=== PATIENT | male | born 1940 | race Caucasian/White ===

== ENCOUNTER 2019-08-18 01:25 | Outpatient (CLI) | payer OTHER, SELFPAY ==
--- NOTE | 2019-08-18 10:15 | DI.RAD_ITS ---
EXAM: XR KNEE LT 3V AP,LAT,PRISCILLA INDICATION: [facility] AUTH #[id number], PAIN LT KNEE, LEFT KNEE GIVES OUT. COMPARISON: No exams were available for comparison TECHNIQUE: 2D digital imaging was performed. FINDINGS: There is severe narrowing of the medial femoral tibial joint. There is periarticular spurring and sc lerosis. Spurring is also seen at the tibial spines and femoral intercondylar notch. The patellofem oral joint also shows periarticular spurring. There is a calcification seen of the posterior soft ti ssues which could be a loose body within a Austin's cyst. Vascular calcifications are present. IMPRESSION: Severe degenerative changes of the medial femoral tibial joint.
== END 2019-08-18 01:45 ==
PROVIDERS: Visit Provider Nurse Practitioner Primary Care
DX: M25.562 Pain in left knee (principal); M17.12 Unilateral primary osteoarthritis, left knee
CPT/HCPCS: 73562

== ENCOUNTER 2024-05-06 13:56 | Emergency (ER) | payer OTHER, SELFPAY ==
--- NOTE | 2024-05-06 14:00 | DI.RAD_ITS ---
Exam(s) XR HUMERUS RT EXAM: XR HUMERUS RT CLINICAL HISTORY: fall, obvious deformity. TECHNIQUE: 2D digital imaging was performed. COMPARISON: No exams were available for comparison FINDINGS: 3 views There is a comminuted displaced and angulated fracture in the proximal half of the humerus, also mild ly involving the humeral neck. There are no fracture line seen in the lower half of the humerus. No osseous lesions. No radiopaque foreign bodies. No adjacent rib fractures evident. IMPRESSION: Angulated displaced comminuted fracture proximal humerus DATA REPOSITORY: RADIATION DOSE DELIVERED:
--- NOTE | 2024-05-06 14:00 | DI.RAD_ITS ---
Exam(s) XR SHOULDER RT COMPLETE 2+V EXAM: XR SHOULDER RT COMPLETE 2+V CLINICAL HISTORY: Fall on outstretched arm, upper arm deformity. TECHNIQUE: 2D digital imaging was performed. COMPARISON: No exams were available for comparison FINDINGS: There is an acute comminuted and displaced fracture of the proximal diaphysis of the right humerus. This also involves the neck of the humerus and 1 of the fracture lines extends towards the greater tu berosity. There is no dislocation of the glenohumeral joint. Subacromial space appears preserved. Clavicle in tact. Coracoid process is intact. No adjacent rib fractures identified. IMPRESSION: Comminuted displaced and angulated fracture of the proximal humerus, also involving the humeral neck. DATA REPOSITORY: RADIATION DOSE DELIVERED:
[2024-05-06 14:01] VITALS: BP 164/89; PULSE 53; RESP 16; TEMP 37; O2SAT 99
--- NOTE | 2024-05-06 14:05 | ED.GENADUL_ITS ---
Discharge Plan Disposition Patient Disposition: Home Condition: Stable Discharge Details Clinical Impression: Fracture of proximal end of humerus, Acute hyperkalemia Primary Care Provider: [facility] Provider: Danna Duvall Home Meds and New Rx's Prescriptions: No Action insulin glargine [Lantus U-100 Insulin] 100 UNIT/ML solution 5 unit SQ HS aspirin [Aspir-Low] 81 MG tablet,delayed release (DR/EC) 81 mg PO DAILY bupropion HCl 100 MG tablet extended release 12 hr 100 mg PO BID simvastatin 40 MG tablet 40 mg PO QPM ascorbic acid (vitamin C) [Vitamin C] 500 MG tablet 500 mg PO DAILY lisinopril 5 MG tablet 5 mg PO DAILY metformin 500 MG tablet extended release 24 hr 500 mg PO BID acetaminophen-codeine [Tylenol-Codeine #3] 1 TAB tablet 1 tab PO Q4H Qty: 10 0RF Discharge Instructions Instructions: Upper Arm Fracture ED Additional Instructions: You were seen in the emergency department today for evaluation after a fall. In our department you had a full physical examination performed, had laboratory studies that were reassuring, and had x-ray imaging that showed a fracture in your upper arm. You are placed in a splint and a sling and should wear these until he can be seen by orthopedics in the next few days. You were noted to have a very slightly higher than normal potassium, for which you should follow- up with your primary care provider. Thank you for allowing us to be part of your care. Please continue to use Tylenol and ice for management of pain. Referrals: Gilson Khan MD [ [facility]] - 1 week Discharge Data Discharge Date/Time-TO BE ENTERED AT DEPARTURE: 05/06/24 17:12 HPI General Mode of arrival: EMS . Date/Time Provider Initiated Documentation: 05/06/24 14:03 . Limitations to Documentation: no limitations . Information obtained by: patient, family, EMS and old records reviewed . HPI Narrative: HPI: This is an 84-year-old male patient with a past medical history significant for hypertension, diabetes, and hyperlipidemia who is presenting for evaluation after a fall. The patient reports he was walking outside, tripped over the uneven ground and lost his balance, falling forward onto an outstretched arm against the wall of his garage/barn. He states that he then went down to his right knee. He reports that he did not hit his head, injure any other part of his body, and was able to ambulate after this event. This event was not preceded by any dizziness, chest pain, loss of consciousness/syncope. He states that he summoned EMS given the significant pain when he tried to move his arm. He states that while he does not have numbness, tingling or weakness of the distal hand, something about his hand just does not feel right. This is an isolated complaint and the patient has otherwise been in his normal state of health. He does not take blood thinning medications. Exam: Gen: Awake and alert, in no apparent distress HEENT: Non-icteric sclera, PERRL, scalp atraumatic Neck: Supple, no tenderness or step-offs appreciated with palpation of the C- spine Lungs: No apparent respiratory distress, normal respiratory effort. CV: Appears well perfused, strong distal pulses, chest wall stable and without tenderness, crepitus, or deformity Abdomen: Non-distended, soft, nontender MSK: Moves 4 extremities without apparent limitation in ROM, with the exception of the right upper extremity, which notes a deformity to the area of the p roximal humerus without overlying skin changes. The patient has no tenderness or deformity of the clavicles bilaterally, right elbow, forearm, wrist, and hand are without evidence of external trauma. T and L-spine are without tenderness or step-offs to palpation, pelvis stable to AP compression. The patient has a brace to the left knee from a historical injury. Skin: Visualized skin without rashes, cyanosis. Abrasion appreciated right knee Neuro: Normal Gait with arm supported, no obvious focal deficits or facial asymmetry. Speaks in full, clear sentences. CSM's distal to the right upper extremity injury are intact Psych: Appropriate for situation. MDM: This is an 84-year-old male patient presenting for evaluation of an isolated right shoulder injury. My differential includes but is not limited to fracture, dislocation, specifically of the shoulder, humerus. I considered ligamentous injury/sprain, muscular strain. No evidence of neurovascular derangements distal to the injury, this is reassuringly an isolated injury based on my physical examination. The patient denies head strike, loss of consciousness, and was without neurodeficit, making intracranial hemorrhage highly unlikely in this not anticoagulated patient. This was a mechanical fall with no concerning medical aspects to his history such as chest pain, syncope, dizziness preceding his fall that would require further workup and management. Will obtain baseline labs including CBC, CMP, PT/INR. Obtain an x-ray of the affected right shoulder and humerus. The patient received Tylenol from EMS prior to arrival for management of pain, and at this time is reporting 2 out of 10 pain as long as he does not move his arm. ED Course: I independently interpreted the laboratory studies, which show no significant leukocytosis, anemia, or thrombocytopenia. The chemistry panel is without evidence of electrolyte abnormality other than a mildly elevated potassium to 5.2, no kidney dysfunction, or liver injury. I independently interpreted the patient's imaging studies, which shows a comminuted humeral fracture, without associated shoulder capsule injury. The patient was placed in a coapt splint with a sling, orthopedics was made aware, he was neurovascularly intact before and after this procedure. The patient did have a brief episode of orthostasis upon sitting up, with sweatiness, transient hypotension, no injury or loss of consciousness sustained. He had an EKG that was nonischemic performed after this event, received 500 cc of fluids, and on repeat road test attempt the patient was asymptomatic and remained hemodynamically appropriate. At this time, the patient has had a full medical evaluation and is safe for discharge to home. They are hemodynamically stable, ambulatory, and tolerating PO. They are understanding of the follow-up plan and return precautions. They left our facility without incident. Danna Duvall MD Related Data Home Medications ?Medication ?Instructions ?Recorded ?Confirmed acetaminophen 300 mg-codeine 30 mg 1 tab PO Q4H #10 tabs 01/03/15 05/06/24 tablet (Tylenol-Codeine #3) ascorbic acid (vitamin C) 500 mg 500 mg PO DAILY 01/03/15 05/06/24 tablet (Vitamin C) aspirin 81 mg tablet,delayed 81 mg PO DAILY 01/03/15 05/06/24 release (Aspir-Low) bupropion HCl 100 mg tablet,12 hr 100 mg PO BID 01/03/15 05/06/24 sustained-release insulin glargine 100 unit/mL 5 unit SQ HS 01/03/15 05/06/24 subcutaneous solution (Lantus U-100 Insulin) lisinopril 5 mg tablet 5 mg PO DAILY 01/03/15 05/06/24 metformin 500 mg tablet,extended 500 mg PO BID 01/03/15 05/06/24 release 24 hr simvastatin 40 mg tablet 40 mg PO QPM 01/03/15 05/06/24 Previous Rx's ?Medication ?Instructions ?Recorded acetaminophen 300 mg-codeine 30 mg 1 tab PO Q4H #10 tabs 01/03/15 tablet (Tylenol-Codeine #3) Allergies Allergy/AdvReac Type Severity Reaction Status Date / Time No Known Allergies Allergy Verified 05/06/24 14:09 General Stated Complaint: Orthopedic MIA: 3 Course Vital Signs Vital signs: Vital Signs Temperature 37 C 05/06/24 14:01 Pulse 53 L 05/06/24 14:01 Respiratory Rate 16 05/06/24 14:01 Blood Pressure 164/89 H 05/06/24 14:01 Pulse Oximetry 99 05/06/24 14:01 Temperature 37 C 05/06/24 14:01 Temperature Source Temporal Artery Scan 05/06/24 14:01 Pulse 53 L 05/06/24 14:01 Respiratory Rate 16 05/06/24 14:01 Blood Pressure 164/89 H 05/06/24 14:01 Blood Pressure Position Sitting 05/06/24 14:01 Pulse Oximetry 99 05/06/24 14:01 Oxygen Delivery Method Room Air 05/06/24 14:01 Oxygen Flow Rate 0 05/06/24 14:01 Pain Level 3 05/06/24 14:01 Procedures Orthopedic Splinting/Casting Injury #1: Side: right Upper Extremity Injury Location: upper arm Upper Extremity Immobilizer: sling/shoulder immobilizer (With orthoglass coapt splint) Medical Decision Making Quality:SDOH Health Related Social Needs: No Data to Display PFSH All Active Problems (Updated 05/06/24 @ 16:52 by Danna Duvall MD) Acute hyperkalemia (Acute) Fracture of proximal end of humerus (Acute) Social History Smoking/Tobacco Use Status: Never Smoking risk assessment performed?: Yes Drug use: Never
[2024-05-06 14:32] LABS: Abs Immature Grans 0.12 10^3/uL (0.0-0.06); Absolute Basophil Count 0.08 10^3/uL (0.0-0.2); Absolute Eosinophil Count 0.13 10^3/uL (0.0-0.7); Absolute Lymphocyte Count 0.94 10^3/uL (1.2-3.4); Absolute Monocyte Count 0.43 10^3/uL (0.1-0.8); Basophils % 0.9 %; Eosinophils % 1.5 %; HCT 43.7 % (40.0-50.0); HGB 14.5 g/dL (13.5-17.5); Immature Grans % 1.4 %; Lymphocytes % 10.9 %; MCH 30.1 pg (27.0-33.0); MCHC 33.2 % (32.0-36.0); MCV 91 fL (80-95); MPV 8.9 fL (8.0-11.0); Neutrophils % 80.3 %; Platelet Count 232 10^3/uL (130-400); RBC 4.82 10^6/uL (4.36-5.78); RDW-SD 39.9 fL
[2024-05-06 14:47] LABS: Albumin 3.3 g/dL (3.4-5.0); BUN 15 mg/dL (7-18); Chloride 104 mmol/L (98-107); Glucose 244 mg/dL (74-106)
[2024-05-06 15:02] LABS: ALT 24 U/L (16-63); AST 25 U/L (15-37); Alkaline Phosphatase 57 U/L (46-116); Anion Gap 7.4 mmol/L (3-11); Bilirubin, Total 0.47 mg/dL (0.2-1.0); CO2 27.6 mmol/L (21.0-32.0); CREATININE 1.1 mg/dL (0.70-1.30); Calcium 8.6 mg/dL (8.5-10.1); Estimated GFR 67.02 (mL/min/1.73m2); Sodium 139 mmol/L (136-145); Total Protein 6.5 g/dL (6.4-8.2)
[2024-05-06 15:04] LABS: Potassium 5.2 mmol/L (3.5-5.1)
--- NOTE | 2024-05-06 15:45 | RT.EKG_ITS ---
APPROVED REPORT Exam: Resting ECG Reason for Exam: orthostasis Patient Location: E HR:59 bpm ECG Measurements Heart Rate 59 AXIS [place] 129 P 54 QRSd 100 QRS 45 QT 412 T 68 QTc 408 Conclusion Sinus bradycardia, rate 59 No interval abnormalities No STEMI
[2024-05-06 15:48] LABS: INR 1.1 (0.9-1.1); Prothrombin Time 10.9 sec (9.1-11.1)
[2024-05-06 15:49] VITALS: BP 96/53; PULSE 52; O2SAT 98
[2024-05-06 15:51] VITALS: PULSE 59; O2SAT 96
[2024-05-06 15:55] VITALS: BP 117/60; PULSE 55; O2SAT 97
[2024-05-06] MEDS: Lactated Ringers 500 ML IV (16:10)
[2024-05-06 17:12] VITALS: BP 100/45; PULSE 63; O2SAT 100
== END 2024-05-06 17:12 | disposition home or self-care (01) ==
PROVIDERS: Emergency Provider Emergency Medicine
DX: S49.001A Unspecified physeal fracture of upper end of humerus, right arm, initial encounter for closed fracture (principal); E87.5 Hyperkalemia; I10 Essential (primary) hypertension; E78.5 Hyperlipidemia, unspecified; E11.9 Type 2 diabetes mellitus without complications; Z79.82 Long term (current) use of aspirin; Z79.4 Long term (current) use of insulin; Z79.84 Long term (current) use of oral hypoglycemic drugs; W01.198A Fall on same level from slipping, tripping and stumbling with subsequent striking against other object, initial encounter; Y93.01 Activity, walking, marching and hiking; Y92.018 Other place in single-family (private) house as the place of occurrence of the external cause
CPT/HCPCS: 36415; 80053; 93005; 96360; 99285; 73030; 73060; 85025; 85610; 93010; 99284

== ENCOUNTER 2024-05-15 14:53 | Emergency (ER) | payer OTHER, SELFPAY ==
[2024-05-15 14:59] VITALS: BP 144/72; PULSE 72; RESP 15; TEMP 36.3; O2SAT 98
--- NOTE | 2024-05-15 15:21 | W.ED.GENAD ---
Discharge Plan Disposition Patient Disposition: Home Condition: Stable Discharge Details Clinical Impression: Fracture of proximal end of humerus Primary Care Provider: [facility] [facility] Provider: Danna Duvall Home Meds and New Rx's Prescriptions: No Action aspirin [Aspir-Low] 81 MG tablet,delayed release (DR/EC) 81 mg PO DAILY simvastatin 40 MG tablet 40 mg PO QPM ascorbic acid (vitamin C) [Vitamin C] 500 MG tablet 500 mg PO DAILY lisinopril 5 MG tablet 5 mg PO DAILY metformin 500 MG tablet extended release 24 hr 500 mg PO BID bupropion HCl 150 mg tablet sustained-release 12 hr 150 mg PO DAILY Discharge Instructions Instructions: Upper Arm Fracture ED Additional Instructions: You were seen in the emergency department today for evaluation after your arm fracture. In our department you had a full physical examination performed, and the reason why your arm is bruised and swollen is because it has been hanging down by your body not in a sling. This is a normal thing to happen after you break your arm but will take several weeks to go away entirely. We have provided with you with a new sling which you should wear at all of the time for support and elevation of your arm. Please use Tylenol as needed for pain. We have confirmed your phone number, and the [facility] will be reaching out to you early next week. Please answer the phone when they do. You also need to call the [place] on Friday to authorize a urgent orthopedics visit, and if you have difficulty navigating the system I recommend that you present to the [place] [facility] on Friday as they have an orthopedic doctor there as well. If you have any concerns, especially if you develop numbness, tingling, weakness of your hand, have severe worsening of your pain, or any other symptoms that cause you concern you can return to the emergency department for reevaluation. Thank you for allowing us to be part of your care. HPI General Mode of arrival: ambulatory. Date/Time Provider Initiated Documentation: 05/15/24 14:56. Limitations to Documentation: no limitations. Information obtained by: patient, family and old records reviewed. HPI Narrative: HPI: This is an 84-year-old male patient with a past medical history of diabetes, hypertension, and a recent history of right proximal humerus fracture, who is presenting for evaluation of arm swelling. The patient reports that after his fracture he has not yet gotten in contact with orthopedics to schedule follow-up, is hopeful to avoid surgery. He reports that he removed the coapt splint on his arm approximately 1 week ago, and has been intermittently using his sling. He arrives to the emergency department with the arm hanging at his side, without the sling in place. The patient states that he noted that his arm has gradually become more swollen and discolored. He reports that his fingers feel slightly cold, but he has not noted any tingling, numbness, or weakness. He states that he has been experiencing some dull pain in the area of the fracture, sharp pain when he moves it, and states that he has not been using any medications to manage his pain. Exam: Gen: Awake and alert, in no apparent distress HEENT: Non-icteric sclera Neck: Supple Lungs: No apparent respiratory distress, normal respiratory effort. CV: Appears well perfused, strong distal pulses Abdomen: Non-distended MSK: The patient has ongoing tenderness in the area of the right proximal humerus where his known fracture is. Distal to this injury he has notable ecchymosis with soft tissue swelling. He has full range of motion of the elbow, wrist, and fingers on the affected right side without pain out of proportion to exam. He has no sensory deficits, and has a full neurovascular examination distal to the proximal humerus fracture. The patient has strong distal pulses Skin: Visualized skin without rashes, cyanosis. Neuro: Normal Gait, no obvious focal deficits or facial asymmetry. Speaks in full, clear sentences. Psych: Appropriate for situation. MDM: This is an 84-year-old male patient presenting for evaluation of swelling and color change after recent fracture. My examination is most concerning for ecchymosis and dependent edema, likely in the setting of sling non-adherence and given the patient's injury. I certainly considered neurovascular derangement, compartment syndrome, DVT, arterial occlusion but these are not consistent with the patient's physical examination. ED Course: I rechecked orthopedics, and discussed the patient's case. The orthopedics clinic attempted to reach the patient by telephone and were unable to. I confirmed his phone number in the chart and made them aware that orthopedics would be trying to reach out to them to discuss follow-up. Additionally, I recommended that he call the [place] to obtain authorization to see orthopedics. I provided him with a new sling and counseling to wear the sling at all times for elevation and support of the arm, and counseled him on reasonable expectations for the course of healing of his ecchymosis and swelling. At this time, the patient has had a full medical evaluation and is safe for discharge to home. They are hemodynamically stable, ambulatory, and tolerating PO. They are understanding of the follow-up plan and return precautions. They left our facility without incident. Danna Duvall MD Related Data Home Medications ?Medication ?Instructions ?Recorded ?Confirmed ascorbic acid (vitamin C) 500 mg 500 mg PO DAILY 01/03/15 05/15/24 tablet (Vitamin C) aspirin 81 mg tablet,delayed 81 mg PO DAILY 01/03/15 05/15/24 release (Aspir-Low) lisinopril 5 mg tablet 5 mg PO DAILY 01/03/15 05/15/24 metformin 500 mg tablet,extended 500 mg PO BID 01/03/15 05/15/24 release 24 hr simvastatin 40 mg tablet 40 mg PO QPM 01/03/15 05/15/24 bupropion HCl 150 mg tablet,12 hr 150 mg PO DAILY 05/15/24 05/15/24 sustained-release Allergies Allergy/AdvReac Type Severity Reaction Status Date / Time No Known Allergies Allergy Verified 05/15/24 15:04 General Stated Complaint: Orthopedic MAI: 3 Course Vital Signs Vital signs: Vital Signs Temperature 36.3 C L 05/15/24 14:59 Pulse 72 05/15/24 14:59 Respiratory Rate 15 05/15/24 14:59 Blood Pressure 144/72 H 05/15/24 14:59 Pulse Oximetry 98 05/15/24 14:59 Temperature 36.3 C L 05/15/24 14:59 Pulse 72 05/15/24 14:59 Respiratory Rate 15 05/15/24 14:59 Respiratory Effort Normal 05/15/24 15:04 Blood Pressure 144/72 H 05/15/24 14:59 Blood Pressure Position Sitting 05/15/24 14:59 Pulse Oximetry 98 05/15/24 14:59 Oxygen Delivery Method Room Air 05/15/24 14:59 Oxygen Flow Rate 0 05/15/24 14:59 Medical Decision Making Quality:SDOH Health Related Social Needs: No Data to Display PFSH All Active Problems (Updated 05/15/24 @ 15:37 by Danna Duvall MD) Acute hyperkalemia (Acute) Fracture of proximal end of humerus (Acute) Social History Smoking/Tobacco Use Status: Never Smoking risk assessment performed?: Yes Drug use: Never
== END 2024-05-15 15:53 | disposition home or self-care (01) ==
PROVIDERS: Emergency Provider Emergency Medicine
DX: S42.201A Unspecified fracture of upper end of right humerus, initial encounter for closed fracture (principal); X58.XXXA Exposure to other specified factors, initial encounter
CPT/HCPCS: 99282; 99283

== ENCOUNTER 2024-11-08 17:47 | Observation (INO) | payer OTHER, SELFPAY ==
[2024-11-08] VITALS (47 sets, daily range): BP systolic 109–151; BP diastolic 54–105; PULSE 75–109; RESP 0–32; TEMP 37.2–37.3; O2SAT 95–99
--- NOTE | 2024-11-08 17:15 | RT.EKG_ITS ---
APPROVED REPORT Exam: Resting ECG Reason for Exam: weakness Patient Location: E HR:104 bpm ECG Measurements Heart Rate 104 AXIS [place] 162 P 69 QRSd 92 QRS 10 QT 332 T 58 QTc 437 Conclusion Sinus tachycardia 104 PVC no [facility]
--- NOTE | 2024-11-08 17:45 | DI.RAD_ITS ---
Exam(s) XR PORTABLE CHEST AP EXAM: XR PORTABLE CHEST AP CLINICAL HISTORY: cough. TECHNIQUE: 2D digital imaging was performed. COMPARISON: No exams were available for comparison FINDINGS: Single AP portable view. Heart size is upper normal. The mediastinum is not widened. The right lung is clear. There is platelike atelectasis or scarring in the lingular segment of the l eft lung. No pulmonary edema. No fractures. No pneumothorax. IMPRESSION: There is mild scarring or platelike atelectasis in the lingular segment of the left lung. DATA REPOSITORY: RADIATION DOSE DELIVERED:
--- NOTE | 2024-11-08 18:01 | W.ED.GENAD ---
Discharge Plan Disposition Patient Disposition: Admit to [facility] Condition: Stable Discharge Details Clinical Impression: Sepsis, Pneumonia Primary Care Provider: [facility] ED Provider: Carroll Diop Home Meds and New Rx's Prescriptions: No Action aspirin [Aspir-Low] 81 MG tablet,delayed release (DR/EC) 81 mg PO DAILY simvastatin 40 MG tablet 40 mg PO QPM ascorbic acid (vitamin C) [Vitamin C] 500 MG tablet 500 mg PO DAILY lisinopril 5 MG tablet 5 mg PO DAILY metformin 500 MG tablet extended release 24 hr 500 mg PO BID bupropion HCl 150 mg tablet sustained-release 12 hr 150 mg PO DAILY HPI General Date/Time Provider Initiated Documentation: 11/08/24 17:59. HPI Narrative: 84 year-old male presents to ED today by EMS with a chief complaint of fever at home, weakness, endorses cough with onset over the past few days- states he has not been able to get up on his own lately. Quality described as generalized malaise, states he may be off his Metformin, denies any overt pain, no radiation to chest pain, shortness of breath, nausea/vomiting, endorses normal BMs, denies abdominal pain. Severity is described as moderate for weakness. Palliating factors include nothing specific attempted. Provoking factors include nothing specific. Events leading up to the incident/Associated Symptoms: Per EMS patient had a temp of 103F. Patient not anticoagulated. Related Data Home Medications ?Medication ?Instructions ?Recorded ?Confirmed ascorbic acid (vitamin C) 500 mg 500 mg PO DAILY 01/03/15 05/15/24 tablet (Vitamin C) aspirin 81 mg tablet,delayed 81 mg PO DAILY 01/03/15 05/15/24 release (Aspir-Low) lisinopril 5 mg tablet 5 mg PO DAILY 01/03/15 05/15/24 metformin 500 mg tablet,extended 500 mg PO BID 01/03/15 05/15/24 release 24 hr simvastatin 40 mg tablet 40 mg PO QPM 01/03/15 05/15/24 bupropion HCl 150 mg tablet,12 hr 150 mg PO DAILY 05/15/24 05/15/24 sustained-release Allergies Allergy/AdvReac Type Severity Reaction Status Date / Time No Known Allergies Allergy Verified 11/08/24 20:51 General Stated Complaint: GenMedical MAI: 3 Review of Systems All systems reviewed & are unremarkable except as noted in HPI and below Exam Narrative Exam Narrative: GENERAL APPEARANCE: Obesity, toxic, awake and alert, atraumatic, mild acute distress. SKIN: Warm, pink, diaphoretic, intact, without rashes/lesions/ulcerations. HEAD: Normocephalic, atraumatic, normal hair distribution for gender/age. EYES: Normal conjunctiva, no exudates on lids/lashes. ENT: Nares patent, no circumoral cyanosis, no facial swelling NECK: Supple, trachea midline, painless cervical ROM. LUNGS/CHEST: Difficult auscultation due to body habitus, no wheezing, no rales, non-labored respirations, normal A/P diameter, symmetrical expansion, no chest wall deformity HEART (CV/PV): Regular rate- mildly tachycardic and rhythm without murmur, no peripheral edema, no JVD. ABDOMEN: Soft, non-distended, no guarding, mild epigastric tenderness without James's sign, no other peritoneal signs. MSK: Normal ROM, no swelling/deformity to bilateral UEs or LEs, moving all extremities without weakness, no cyanosis, spine midline without tenderness, normal curvature. NEURO: Mental Status AAOx4 - alert to person, place, time, events No facial droop, no forehead involvement. Motor: No focal weakness - strength 5/5 in bilateral UEs and LEs, proximal and distal, symmetric. Sensory: sensation intact to light touch globally. Gait NT. PSYCH: euthymic, cooperative, pleasant, appropriate speech Course Vital Signs Vital signs: Vital Signs Temperature 37.2 C 11/08/24 17:53 Pulse 105 H 11/08/24 17:53 Respiratory Rate 12 11/08/24 17:53 Blood Pressure 126/67 11/08/24 17:53 Pulse Oximetry 99 11/08/24 17:53 Temperature 37.2 C 11/08/24 17:53 Temperature Source Oral 11/08/24 17:53 Pulse 105 H 11/08/24 17:53 Respiratory Rate 12 11/08/24 17:53 Blood Pressure 126/67 11/08/24 17:53 Blood Pressure Position Supine 11/08/24 17:53 Pulse Oximetry 99 11/08/24 17:53 Oxygen Delivery Method Room Air 11/08/24 17:53 Oxygen Flow Rate 0 11/08/24 17:53 Lab/Test Results Lab/Test Results: 11/08/24 17:59 Blood Blood Culture - Pending 11/08/24 17:59 Blood Blood Culture - Pending Medical Decision Making This dictation utilizes [id number] dictation software and may contain unedited grammatical errors. 84 year-old male presents to ED today by EMS with a chief complaint of fever at home, weakness, endorses cough with onset over the past few days- states he has not been able to get up on his own lately. Quality described as generalized malaise, states he may be off his Metformin, denies any overt pain, no radiation to chest pain, shortness of breath, nausea/vomiting, endorses normal BMs, denies abdominal pain. Severity is described as moderate for weakness. Palliating factors include nothing specific attempted. Provoking factors include nothing specific. Events leading up to the incident/Associated Symptoms: Per EMS patient had a temp of 103F. Patients' medical history: T2DM, hyperlipidemia, denies cardiac history, denies COPD or tobacco use, denies stroke history. Family and social history: denies tobacco use, no ETOH use, states family is sick in the home with cough. Pertinent exam findings / vital signs include difficult auscultation to body habitus, no overt wheezing, no rales at bases, regular rate, mild epigastric tenderness without James's sign, no peritoneal signs. Differential / pathologies of concern include sepsis, pneumonia, UTI, poorly controlled diabetes. Diagnostic studies of: - CBC, CMP, lactate, lipase, magnesium, troponin, UA, respiratory panel PCR swab, blood cultures, chest x-ray. - CBC shows no leukocytosis, low lymphocytes, elevated absolute neutrophils - Initial lactate 3.5, repeat 2.5 - CMP shows mild BESSIE creatinine 1.4 - Magnesium normal - Serial troponins negative - Lipase negative - UA shows some proteinuria, no UTI - Blood cultures pending - Chest x-ray shows some platelike atelectasis or scarring in the lingular segment of left lung possible secondary to pneumonia Interventions of: - IV ceftriaxone, IV azithromycin, IV fluids. ED Course/Assessment/Plan: 84-year-old male presents by EMS for report of fever of 103F at home, tachycardia per EMS, sick contacts in the home-question some platelike atelectasis secondary to mild pneumonia with lactic acidosis initially 3.5, repeat 2.5, giving empiric antibiotics for pneumonia, patient has been off his metformin for 2 weeks I do not think that metformin is the source of a lactic acidosis, stable troponins, discussed with hospitalist Dr. Subramanian who accepted for obs admission. Findings not consistent with hypoxemic respiratory failure, ACS, septic shock, acute surgical abdominal pathology. Disposition of Sepsis, Pneumonia. Patient verbalized understanding of the plan and return to ED criteria and engaged in shared decision making. Medical Records Medical records reviewed: Yes I reviewed the patient's medical records. Imaging Data Radiologic Study: Attestation: I personally reviewed and interpreted this imaging study as follows: Imaging: X-Ray Radiologist's impression: EXAM: XR PORTABLE CHEST AP CLINICAL HISTORY: cough. TECHNIQUE: 2D digital imaging was performed. COMPARISON: No exams were available for comparison FINDINGS: Single AP portable view. Heart size is upper normal. The mediastinum is not widened. The right lung is clear. There is platelike atelectasis or scarring in the lingular segment of the left lung. No pulmonary edema. No fractures. No pneumothorax. IMPRESSION: There is mild scarring or platelike atelectasis in the lingular segment of the left lung. Lab Data Lab results reviewed: Yes I reviewed the patient's lab results. Labs: 11/08/24 21:40 Blood Blood Culture - Pending 11/08/24 19:50 Blood Blood Culture - Pending Laboratory Tests Range/Units 11/08/24 11/08/24 11/08/24 18:08 19:50 21:40 WBC (4.4-10.8) 10^3/uL 9.02 RBC (4.36-5.78) 10^6/uL 5.36 Hgb (13.5-17.5) g/dL 15.5 Hct (40.0-50.0) % 46.8 MCV (80-95) fL 87 MCH (27.0-33.0) pg 28.9 MCHC (32.0-36.0) % 33.1 RDW (11.8-14.1) % 12.6 Plt Count (130-400) 10^3/uL 200 MPV (8.0-11.0) fL 9.2 Immature Gran % % 1.1 Neutrophils % % 86.6 Lymphocytes % % 4.7 Monocytes % % 6.7 Eosinophils % % 0.3 Basophils % % 0.6 Nucleated RBC % (0.0-0.3) % 0.0 Absolute Neutrophils (1.2-6.7) 10^3/uL 7.82 H Absolute Lymphocytes (1.2-3.4) 10^3/uL 0.42 L Absolute Monocytes (0.1-0.8) 10^3/uL 0.60 Absolute Eosinophils (0.0-0.7) 10^3/uL 0.03 Absolute Basophils (0.0-0.2) 10^3/uL 0.05 VBG Lactate (<or=2.0) mmol/L 3.5 H* Sodium (136-145) mmol/L 134 L Potassium (3.5-5.1) mmol/L 4.3 Chloride (98-107) mmol/L 100 Carbon Dioxide (21.0-32.0) mmol/L 27.2 Anion Gap (3-11) mmol/L 6.8 BUN (7-18) mg/dL 16 Creatinine (0.70-1.30) mg/dL 1.4 H Est GFR (CKD-EPI 2020) (mL/min/1.73m2) 50.18 Glucose (74-106) mg/dL 216 H Calcium (8.5-10.1) mg/dL 9.1 Magnesium (1.8-2.4) mg/dL 1.8 Total Bilirubin (0.2-1.0) mg/dL 0.7 AST (15-37) U/L 18 ALT (16-63) U/L 18 Alkaline Phosphatase (46-116) U/L 70 Troponin I (<or=76) ng/L 22 22 Total Protein (6.4-8.2) g/dL 7.6 Albumin (3.4-5.0) g/dL 3.5 Lipase (<78) U/L 58 Urine Color (Yellow) Yellow Urine Clarity (Clear) Clear Urine pH (5-8) 5.5 Ur Specific [place] (1.005-1.025) 1.020 Urine Protein (Neg-Trace) mg/dL 100 H Urine Ketones (Negative) mg/dL Negative Urine Blood (Negative) Trace-lysed H Urine Nitrite (Negative) Negative Urine Bilirubin (Negative) Negative Urine Urobilinogen (Up to 0.2) mg/dL 0.2 Ur Leukocyte Esterase (Negative) Negative Urine RBC (0-2) HPF 3-5 H Urine WBC (0-5) HPF Negative Ur Epithelial Cells (Negative) HPF Negative Urine Crystals (Negative) HPF Rare Amorphous Urine Bacteria (Negative) HPF Rare Urine Casts (Negative) LPF 0-2 Hyaline Urine Mucus (Negative) Trace Urine Other (Negative) Rare [place] Ur Culture Indicated? No Urine Glucose (Negative) mg/dL 500 H COVID-19 Source Nasopharynx SARS-CoV-2 (PCR) (Negative) Negative Influenza Type A (PCR) (Negative) Negative Influenza Type B (PCR) (Negative) Negative RSV (PCR) (Negative) Negative Range/Units 11/08/24 22:02 WBC (4.4-10.8) 10^3/uL RBC (4.36-5.78) 10^6/uL Hgb (13.5-17.5) g/dL Hct (40.0-50.0) % MCV (80-95) fL MCH (27.0-33.0) pg MCHC (32.0-36.0) % RDW (11.8-14.1) % Plt Count (130-400) 10^3/uL MPV (8.0-11.0) fL Immature Gran % % Neutrophils % % Lymphocytes % % Monocytes % % Eosinophils % % Basophils % % Nucleated RBC % (0.0-0.3) % Absolute Neutrophils (1.2-6.7) 10^3/uL Absolute Lymphocytes (1.2-3.4) 10^3/uL Absolute Monocytes (0.1-0.8) 10^3/uL Absolute Eosinophils (0.0-0.7) 10^3/uL Absolute Basophils (0.0-0.2) 10^3/uL VBG Lactate (<or=2.0) mmol/L 2.5 H* Sodium (136-145) mmol/L Potassium (3.5-5.1) mmol/L Chloride (98-107) mmol/L Carbon Dioxide (21.0-32.0) mmol/L Anion Gap (3-11) mmol/L BUN (7-18) mg/dL Creatinine (0.70-1.30) mg/dL Est GFR (CKD-EPI 2020) (mL/min/1.73m2) Glucose (74-106) mg/dL Calcium (8.5-10.1) mg/dL Magnesium (1.8-2.4) mg/dL Total Bilirubin (0.2-1.0) mg/dL AST (15-37) U/L ALT (16-63) U/L Alkaline Phosphatase (46-116) U/L Troponin I (<or=76) ng/L Total Protein (6.4-8.2) g/dL Albumin (3.4-5.0) g/dL Lipase (<78) U/L Urine Color (Yellow) Urine Clarity (Clear) Urine pH (5-8) Ur Specific [place] (1.005-1.025) Urine Protein (Neg-Trace) mg/dL Urine Ketones (Negative) mg/dL Urine Blood (Negative) Urine Nitrite (Negative) Urine Bilirubin (Negative) Urine Urobilinogen (Up to 0.2) mg/dL Ur Leukocyte Esterase (Negative) Urine RBC (0-2) HPF Urine WBC (0-5) HPF Ur Epithelial Cells (Negative) HPF Urine Crystals (Negative) HPF Urine Bacteria (Negative) HPF Urine Casts (Negative) LPF Urine Mucus (Negative) Urine Other (Negative) Ur Culture Indicated? Urine Glucose (Negative) mg/dL COVID-19 Source SARS-CoV-2 (PCR) (Negative) Influenza Type A (PCR) (Negative) Influenza Type B (PCR) (Negative) RSV (PCR) (Negative) Quality:SDOH Health Related Social Needs: No Data to Display PFSH All Active Problems (Updated 11/08/24 @ 22:43 by Karel Subramanian MD) Acute delirium (Acute) Hypertension (Chronic) Diabetes (Chronic) Pneumonia (Acute) Sepsis (Acute) Social History Smoking/Tobacco Use Status: Never Smoking risk assessment performed?: Yes Alcohol Intake: never Drug use: Never Substance use type: does not use
[2024-11-08 18:48] LABS: Bilirubin Negative (Negative); Blood Trace-lysed (Negative); Clarity Clear (Clear); Glucose 500 mg/dL (Negative); Ketones Negative (Negative); Leukocyte Esterase Negative (Negative); Nitrite Negative (Negative); Urobilinogen 0.2 mg/dL (Up to 0.2); pH 5.5 (5-8)
[2024-11-08 19:04] LABS: Bacteria Rare HPF (Negative); Crystals Rare Amorphous HPF (Negative); Epithelial Cells Negative HPF (Negative); WBC Negative HPF (0-5)
[2024-11-08 19:05] LABS: C & S Indicated? No; Casts 0-2 Hyaline LPF (Negative); Mucus Trace (Negative)
[2024-11-08 20:04] LABS: Absolute Basophil Count 0.05 10^3/uL (0.0-0.2); Absolute Eosinophil Count 0.03 10^3/uL (0.0-0.7); Absolute Lymphocyte Count 0.42 10^3/uL (1.2-3.4); Absolute Neutrophil Count 7.82 10^3/uL (1.2-6.7); Basophils % 0.6 %; Eosinophils % 0.3 %; HCT 46.8 % (40.0-50.0); HGB 15.5 g/dL (13.5-17.5); Immature Grans % 1.1 %; Lymphocytes % 4.7 %; MCH 28.9 pg (27.0-33.0); MCHC 33.1 % (32.0-36.0); MCV 87 fL (80-95); MPV 9.2 fL (8.0-11.0); Monocytes % 6.7 %; Neutrophils % 86.6 %; Platelet Count 200 10^3/uL (130-400); RBC 5.36 10^6/uL (4.36-5.78); RDW 12.6 % (11.8-14.1); RDW-SD 40.7 fL; WBC 9.02 10^3/uL (4.4-10.8)
[2024-11-08 20:05] LABS: Lactate 3.5 mmol/L (<or=2.0)
[2024-11-08 20:31] LABS: ALT 18 U/L (16-63); AST 18 U/L (15-37); Albumin 3.5 g/dL (3.4-5.0); Alkaline Phosphatase 70 U/L (46-116); Anion Gap 6.8 mmol/L (3-11); BUN 16 mg/dL (7-18); Bilirubin, Total 0.7 mg/dL (0.2-1.0); CO2 27.2 mmol/L (21.0-32.0); CREATININE 1.4 mg/dL (0.70-1.30); Calcium 9.1 mg/dL (8.5-10.1); Chloride 100 mmol/L (98-107); Estimated GFR 50.18 (mL/min/1.73m2); Glucose 216 mg/dL (74-106); Magnesium 1.8 mg/dL (1.8-2.4); Potassium 4.3 mmol/L (3.5-5.1); Sodium 134 mmol/L (136-145); Total Protein 7.6 g/dL (6.4-8.2); Troponin I 22 ng/L (<or=76)
[2024-11-08] MEDS: cefTRIAXone 2 GM/50 ML BAG IVPB (20:37)
[2024-11-08] MEDS: AZITHROMYCIN 500 MG in Normal Saline 250 ML 250 MG IVPB (20:37)
[2024-11-08 20:39] LABS: COVID-19 PCR Negative (Negative); Influenza A PCR Negative (Negative); Influenza B PCR Negative (Negative); RSV PCR Negative (Negative); Source Nasopharynx
[2024-11-08 20:41] LABS: Lipase 58 U/L (<78)
[2024-11-08] MEDS: Normal Saline 1,000 ML 1000 ML IV (20:55)
[2024-11-08 22:07] LABS: Troponin I 22 ng/L (<or=76)
[2024-11-08 22:09] LABS: Lactate 2.5 mmol/L (<or=2.0)
--- NOTE | 2024-11-08 22:32 | HPE_ITS ---
Date of service: 11/08/24 Time of Service: 22:32 Assessment and Plan Assessment and plan (1) Sepsis: Status: Acute Assessment and plan: Patient was started on antibiotics in the ED but I do not see a clear indication for this. Patient technically does not have sepsis. Recheck fever curve and white count in the morning and then make a decision on antibiotics (2) Pneumonia: Status: Acute Assessment and plan: As above (3) Diabetes: Status: Chronic Assessment and plan: Per notes from the ED the patient knows longer is on metformin. His glucose did show a value of 216 but this is not fasting obviously. Will add sliding scale and monitor monitor. (4) Hypertension: Status: Chronic Assessment and plan: Restart home meds once med list is available (5) Acute delirium: Status: Acute Assessment and plan: My concern at this time is an underlying dementia versus delirium. Will give chemical restraints as needed. Right now the patient is not agitated but does seem confused. History of Present Illness Narrative: This is an 84-year-old gentleman who presented to the ED with concerns about hyperpyrexia. Per report the patient had a fever of 103 at home came into the ED for further evaluation and treatment. On my examination the patient states that he is not able to walk. The patient was also completely nude and does not remember taken off his clothes. The patient is alert he is oriented to person only. His workup was fairly benign with the exception of a possible pneumonia as well as in proving and lactic acidosis. The reason for admission at this point is more for safety and concerns about undiagnosed dementia. Workup in the ED showed a normal white count and a fairly benign lab work. Urinalysis did show some proteinuria and hematuria. Chest x-ray shows some atelectasis but possible pneumonia in the left lung. EKG shows PVCs but is otherwise within normal limits. HPI General Date/Time Provider Initiated Documentation: 11/08/24 17:59. HPI Narrative: 84 year-old male presents to ED today by EMS with a chief complaint of fever at home, weakness, endorses cough with onset over the past few days- states he has not been able to get up on his own lately. Quality described as generalized malaise, states he may be off his Metformin, denies any overt pain, no radiation to chest pain, shortness of breath, nausea/vomiting, endorses normal BMs, denies abdominal pain. Severity is described as moderate for weakness. Palliating factors include nothing specific attempted. Provoking factors include nothing specific. Events leading up to the incident/Associated Symptoms: Per EMS patient had a temp of 103F. Medical Decision Making This dictation utilizes [id number] dictation software and may contain unedited grammatical errors. 84 year-old male presents to ED today by EMS with a chief complaint of fever at home, weakness, endorses cough with onset over the past few days- states he has not been able to get up on his own lately. Quality described as generalized malaise, states he may be off his Metformin, denies any overt pain, no radiation to chest pain, shortness of breath, nausea/vomiting, endorses normal BMs, denies abdominal pain. Severity is described as moderate for weakness. Palliating factors include nothing specific attempted. Provoking factors include nothing specific. Events leading up to the incident/Associated Symptoms: Per EMS patient had a temp of 103F. Patients' medical history: T2DM, hyperlipidemia, denies cardiac history, denies COPD or tobacco use, denies stroke history. Family and social history: denies tobacco use, no ETOH use, states family is sick in the home with cough. Pertinent exam findings / vital signs include difficult auscultation to body habitus, no overt wheezing, no rales at bases, regular rate, mild epigastric tenderness without James's sign, no peritoneal signs. Differential / pathologies of concern include sepsis, pneumonia, UTI, poorly controlled diabetes. Diagnostic studies of: - CBC, CMP, lactate, lipase, magnesium, troponin, UA, respiratory panel PCR swab, blood cultures, chest x-ray. - CBC shows no leukocytosis, low lymphocytes, elevated absolute neutrophils - Initial lactate 3.5, repeat 2.5 - CMP shows mild BESSIE creatinine 1.4 - Magnesium normal - Serial troponins negative - Lipase negative - UA shows some proteinuria, no UTI - Blood cultures pending - Chest x-ray shows some platelike atelectasis or scarring in the lingular segment of left lung possible secondary to pneumonia Interventions of: - IV ceftriaxone, IV azithromycin, IV fluids. ED Course/Assessment/Plan: 84-year-old male presents by EMS for report of fever of 103F at home, tachycardia per EMS, sick contacts in the home-question some platelike atelectasis secondary to mild pneumonia with lactic acidosis initially 3.5, repeat 2.5, giving empiric antibiotics for pneumonia, patient has been off his metformin for 2 weeks I do not think that metformin is the source of a lactic acidosis, stable troponins, discussed with hospitalist Dr. Subramanian who accepted for obs admission. Findings not consistent with hypoxemic respiratory failure, ACS, septic shock, acute surgical abdominal pathology. Disposition of Sepsis, Pneumonia. Patient verbalized understanding of the plan and return to ED criteria and engaged in shared decision making. Review of Systems Unobtainable due to mental status [facility] All Active Problems (Updated 11/08/24 @ 22:43 by Karel Subramanian MD) Acute delirium (Acute) Hypertension (Chronic) Diabetes (Chronic) Pneumonia (Acute) Sepsis (Acute) Social History Smoking/Tobacco Use Status: Never Smoking risk assessment performed?: Yes Alcohol Intake: never Drug use: Never Substance use type: does not use Meds Allergies and Home Medications Allergies Allergy/AdvReac Type Severity Reaction Status Date / Time No Known Allergies Allergy Verified 11/08/24 20:51 Home Medications ?Medication ?Instructions ?Recorded ?Confirmed ?Type ascorbic acid (vitamin C) 500 mg 500 mg PO DAILY 01/03/15 05/15/24 History tablet (Vitamin C) aspirin 81 mg tablet,delayed 81 mg PO DAILY 01/03/15 05/15/24 History release (Aspir-Low) lisinopril 5 mg tablet 5 mg PO DAILY 01/03/15 05/15/24 History metformin 500 mg tablet,extended 500 mg PO BID 01/03/15 05/15/24 History release 24 hr simvastatin 40 mg tablet 40 mg PO QPM 01/03/15 05/15/24 History bupropion HCl 150 mg tablet,12 hr 150 mg PO DAILY 05/15/24 05/15/24 History sustained-release Exam Narrative Exam Narrative: HEENT: Normocephalic atraumatic mucous membranes moist oropharynx clear Neck: No lymphadenopathy no JVD no thyromegaly Cardiovascular: Regular rate and rhythm no rubs or gallops Lungs: Clear to auscultation bilaterally with good air exchange Abdomen: Soft nontender nondistended bowel sounds active Extremities: no sinus clubbing or edema Neurologic: Cranial nerves II through XII intact as tested reflexes upper extremity normal as tested Psych: he is alert but oriented only person. Results Labs 11/08/24 19:50 11/08/24 19:50 Labs: Laboratory Results - last 24 hr 11/08/24 11/08/24 11/08/24 18:08 19:50 21:40 WBC 9.02 RBC 5.36 Hgb 15.5 Hct 46.8 MCV 87 MCH 28.9 MCHC 33.1 RDW 12.6 Plt Count 200 MPV 9.2 Immature Gran % 1.1 Neutrophils % 86.6 Lymphocytes % 4.7 Monocytes % 6.7 Eosinophils % 0.3 Basophils % 0.6 Nucleated RBC % 0.0 Absolute Neutrophils 7.82 H Absolute Lymphocytes 0.42 L Absolute Monocytes 0.60 Absolute Eosinophils 0.03 Absolute Basophils 0.05 VBG Lactate 3.5 H* Sodium 134 L Potassium 4.3 Chloride 100 Carbon Dioxide 27.2 Anion Gap 6.8 BUN 16 Creatinine 1.4 H Est GFR (CKD-EPI 2020) 50.18 Glucose 216 H Calcium 9.1 Magnesium 1.8 Total Bilirubin 0.7 AST 18 ALT 18 Alkaline Phosphatase 70 Troponin I 22 22 Total Protein 7.6 Albumin 3.5 Lipase 58 Urine Color Yellow Urine Clarity Clear Urine pH 5.5 Ur Specific [place] 1.020 Urine Protein 100 H Urine Ketones Negative Urine Blood Trace-lysed H Urine Nitrite Negative Urine Bilirubin Negative Urine Urobilinogen 0.2 Ur Leukocyte Esterase Negative Urine RBC 3-5 H Urine WBC Negative Ur Epithelial Cells Negative Urine Crystals Rare Amorphous Urine Bacteria Rare Urine Casts 0-2 Hyaline Urine Mucus Trace Urine Other Rare [place] Ur Culture Indicated? No Urine Glucose 500 H COVID-19 Source Nasopharynx SARS-CoV-2 (PCR) Negative Influenza Type A (PCR) Negative Influenza Type B (PCR) Negative RSV (PCR) Negative 11/08/24 22:02 WBC RBC Hgb Hct MCV MCH MCHC RDW Plt Count MPV Immature Gran % Neutrophils % Lymphocytes % Monocytes % Eosinophils % Basophils % Nucleated RBC % Absolute Neutrophils Absolute Lymphocytes Absolute Monocytes Absolute Eosinophils Absolute Basophils VBG Lactate 2.5 H* Sodium Potassium Chloride Carbon Dioxide Anion Gap BUN Creatinine Est GFR (CKD-EPI 2020) Glucose Calcium Magnesium Total Bilirubin AST ALT Alkaline Phosphatase Troponin I Total Protein Albumin Lipase Urine Color Urine Clarity Urine pH Ur Specific [place] Urine Protein Urine Ketones Urine Blood Urine Nitrite Urine Bilirubin Urine Urobilinogen Ur Leukocyte Esterase Urine RBC Urine WBC Ur Epithelial Cells Urine Crystals Urine Bacteria Urine Casts Urine Mucus Urine Other Ur Culture Indicated? Urine Glucose COVID-19 Source SARS-CoV-2 (PCR) Influenza Type A (PCR) Influenza Type B (PCR) RSV (PCR) Last Vital Signs Temp 37.2 C 11/08/24 17:53 Pulse 93 H 11/08/24 21:11 Resp 29 H 11/08/24 21:11 BP 141/105 H 11/08/24 21:01 Pulse Ox 98 11/08/24 21:11 Time Spent Time spent with Patient: <40 minutes Time was spent: preparing to see the patient(eg.review tests), obtaining and/or reviewing separately otained hiistory, ordering medications,tests, procedures, referring, communicating with other health care director rn, indepentently interpreting results, counseling the patient and care coordination
[2024-11-08] MEDS: Enoxaparin 40 MG/0.4 ML SYR SC (23:55)
[2024-11-09] VITALS (9 sets, daily range): BP systolic 87–133; BP diastolic 53–78; PULSE 67–90; RESP 18–19; TEMP 36.6–38.8; O2SAT 96–99
--- NOTE | 2024-11-09 00:27 | W.PC.ACHO ---
Registration Status: Primary Language: Preferred Language: ED Information & Data Chief Complaint GenMedical 11/08/24 18:02 Triage Note Patient family called with 11/08/24 17:53 report of patient having generalized weakness. Patient having history of feeling unwell for a week. Not voiding since morning. EMS reported fever of 103. Patient reported coughing. He is diabetic and family reported that they are not sure when he had his medication. Most Recent Vital Signs Temperature 37.3 C 11/08/24 23:57 Temperature Source Tympanic 11/08/24 23:57 Pulse 75 11/08/24 23:57 Respiratory Rate 29 H 11/08/24 21:11 Respiratory Effort Normal, Non-Labored 11/08/24 18:01 Respiratory Depth Normal 11/08/24 18:01 Respiratory Pattern Normal 11/08/24 18:01 Blood Pressure 151/84 H 11/08/24 23:57 Blood Pressure Position Supine 11/08/24 17:53 Pulse Oximetry 97 11/08/24 23:57 Oxygen Delivery Method Room Air 11/08/24 23:57 Oxygen Flow Rate 0 11/08/24 23:57 Allergies No Known Allergies Allergy (Verified 11/08/24 20:51) Active Medications Generic Name Dose Route Start Last Admin Trade Name Freq PRN Reason Stop Dose Admin Enoxaparin Sodium 40 mg 11/08/24 23:00 11/08/24 23:55 Enoxaparin 40 Mg/0.4 Ml Syr SC 40 mg Q24H CARYN Administration IV IV Catheter Type [Left Upper Saline Lock arm] IV Catheter Gauge [Left Upper 18 arm] Diet Orders Category Date Time Status Regular/Normal [DIET] Nutrition 11/09/24 Breakfast Active Diagnostics 11/09/24 11/08/24 11/08/24 Range/Units 05:35 22:02 21:40 WBC Pending (4.4-10.8) 10^3/uL RBC Pending (4.36-5.78) 10^6/uL Hgb Pending (13.5-17.5) g/dL Hct Pending (40.0-50.0) % MCV Pending (80-95) fL MCH Pending (27.0-33.0) pg MCHC Pending (32.0-36.0) % RDW Pending (11.8-14.1) % Plt Count Pending (130-400) 10^3/uL MPV Pending (8.0-11.0) fL Immature Gran % Pending % Neutrophils % Pending % Lymphocytes % Pending % Monocytes % Pending % Eosinophils % Pending % Basophils % Pending % Nucleated RBC % (0.0-0.3) % Absolute Neutrophils Pending (1.2-6.7) 10^3/uL Absolute Lymphocytes Pending (1.2-3.4) 10^3/uL Absolute Monocytes Pending (0.1-0.8) 10^3/uL Absolute Eosinophils Pending (0.0-0.7) 10^3/uL Absolute Basophils Pending (0.0-0.2) 10^3/uL VBG Lactate 2.5 H* (<or=2.0) mmol/L Sodium Pending (136-145) mmol/L Potassium Pending (3.5-5.1) mmol/L Chloride Pending (98-107) mmol/L Carbon Dioxide Pending (21.0-32.0) mmol/L Anion Gap Pending (3-11) mmol/L BUN Pending (7-18) mg/dL Creatinine Pending (0.70-1.30) mg/dL Est GFR (CKD-EPI 2020) Pending (mL/min/1.73m2) Glucose Pending (74-106) mg/dL Calcium Pending (8.5-10.1) mg/dL Magnesium (1.8-2.4) mg/dL Total Bilirubin Pending (0.2-1.0) mg/dL AST Pending (15-37) U/L ALT Pending (16-63) U/L Alkaline Phosphatase Pending (46-116) U/L Troponin I 22 (<or=76) ng/L Total Protein Pending (6.4-8.2) g/dL Albumin Pending (3.4-5.0) g/dL Lipase (<78) U/L Urine Color (Yellow) Urine Clarity (Clear) Urine pH (5-8) Ur Specific [place] (1.005-1.025) Urine Protein (Neg-Trace) mg/dL Urine Ketones (Negative) mg/dL Urine Blood (Negative) Urine Nitrite (Negative) Urine Bilirubin (Negative) Urine Urobilinogen (Up to 0.2) mg/dL Ur Leukocyte Esterase (Negative) Urine RBC (0-2) HPF Urine WBC (0-5) HPF Ur Epithelial Cells (Negative) HPF Urine Crystals (Negative) HPF Urine Bacteria (Negative) HPF Urine Casts (Negative) LPF Urine Mucus (Negative) Urine Other (Negative) Ur Culture Indicated? Urine Glucose (Negative) mg/dL COVID-19 Source SARS-CoV-2 (PCR) (Negative) Influenza Type A (PCR) (Negative) Influenza Type B (PCR) (Negative) RSV (PCR) (Negative) 11/08/24 11/08/24 Range/Units 19:50 18:08 WBC 9.02 (4.4-10.8) 10^3/uL RBC 5.36 (4.36-5.78) 10^6/uL Hgb 15.5 (13.5-17.5) g/dL Hct 46.8 (40.0-50.0) % MCV 87 (80-95) fL MCH 28.9 (27.0-33.0) pg MCHC 33.1 (32.0-36.0) % RDW 12.6 (11.8-14.1) % Plt Count 200 (130-400) 10^3/uL MPV 9.2 (8.0-11.0) fL Immature Gran % 1.1 % Neutrophils % 86.6 % Lymphocytes % 4.7 % Monocytes % 6.7 % Eosinophils % 0.3 % Basophils % 0.6 % Nucleated RBC % 0.0 (0.0-0.3) % Absolute Neutrophils 7.82 H (1.2-6.7) 10^3/uL Absolute Lymphocytes 0.42 L (1.2-3.4) 10^3/uL Absolute Monocytes 0.60 (0.1-0.8) 10^3/uL Absolute Eosinophils 0.03 (0.0-0.7) 10^3/uL Absolute Basophils 0.05 (0.0-0.2) 10^3/uL VBG Lactate 3.5 H* (<or=2.0) mmol/L Sodium 134 L (136-145) mmol/L Potassium 4.3 (3.5-5.1) mmol/L Chloride 100 (98-107) mmol/L Carbon Dioxide 27.2 (21.0-32.0) mmol/L Anion Gap 6.8 (3-11) mmol/L BUN 16 (7-18) mg/dL Creatinine 1.4 H (0.70-1.30) mg/dL Est GFR (CKD-EPI 2020) 50.18 (mL/min/1.73m2) Glucose 216 H (74-106) mg/dL Calcium 9.1 (8.5-10.1) mg/dL Magnesium 1.8 (1.8-2.4) mg/dL Total Bilirubin 0.7 (0.2-1.0) mg/dL AST 18 (15-37) U/L ALT 18 (16-63) U/L Alkaline Phosphatase 70 (46-116) U/L Troponin I 22 (<or=76) ng/L Total Protein 7.6 (6.4-8.2) g/dL Albumin 3.5 (3.4-5.0) g/dL Lipase 58 (<78) U/L Urine Color Yellow (Yellow) Urine Clarity Clear (Clear) Urine pH 5.5 (5-8) Ur Specific [place] 1.020 (1.005-1.025) Urine Protein 100 H (Neg-Trace) mg/dL Urine Ketones Negative (Negative) mg/dL Urine Blood Trace-lysed H (Negative) Urine Nitrite Negative (Negative) Urine Bilirubin Negative (Negative) Urine Urobilinogen 0.2 (Up to 0.2) mg/dL Ur Leukocyte Esterase Negative (Negative) Urine RBC 3-5 H (0-2) HPF Urine WBC Negative (0-5) HPF Ur Epithelial Cells Negative (Negative) HPF Urine Crystals Rare Amorphous (Negative) HPF Urine Bacteria Rare (Negative) HPF Urine Casts 0-2 Hyaline (Negative) LPF Urine Mucus Trace (Negative) Urine Other Rare [place] (Negative) Ur Culture Indicated? No Urine Glucose 500 H (Negative) mg/dL COVID-19 Source Nasopharynx SARS-CoV-2 (PCR) Negative (Negative) Influenza Type A (PCR) Negative (Negative) Influenza Type B (PCR) Negative (Negative) RSV (PCR) Negative (Negative) 11/08/24 21:40 Blood Culture - Pending Blood 11/08/24 19:50 Blood Culture - Pending Blood Intake and Output - 24 Hour Total 11/08/24 17:23 thru 11/08/24 23:17 Intake Total 1300 Balance 1300 Weight 114.6 kg Intake: IV 1300 Falls Risk Assessment History of Falls No History 11/08/24 21:51 Contributing Factors No Factors 11/08/24 21:51 Ambulatory Aids Independent 11/08/24 21:51 Tubes/Lines None 11/08/24 21:51 Gait Evaluation No gait disturbance 11/08/24 21:51 Cognition No cognitive impairment 11/08/24 21:51 Fall Total Score 0 11/08/24 21:51 Level of Risk Standard/Low Risk 11/08/24 21:51 Problems Acute delirium (Acute) Hypertension (Chronic) Diabetes (Chronic) Pneumonia (Acute) Sepsis (Acute) v v v v v v v v v Sending and/or Receiving Nurses: Please use comment section below to note any information pertinent to the patient hand-off not included above. Information / Comments: No further questions. Report received from: VANCE Bynum
[2024-11-09] MEDS: Acetaminophen 325 MG TAB PO (00:58)
[2024-11-09] MEDS: Normal Saline 1,000 ML 100 ML IV (00:59)
[2024-11-09 06:58] LABS: Abs Immature Grans 0.06 10^3/uL (0.0-0.06); Absolute Basophil Count 0.04 10^3/uL (0.0-0.2); Absolute Eosinophil Count 0.05 10^3/uL (0.0-0.7); Absolute Lymphocyte Count 0.77 10^3/uL (1.2-3.4); Absolute Monocyte Count 0.71 10^3/uL (0.1-0.8); Absolute Neutrophil Count 3.56 10^3/uL (1.2-6.7); Basophils % 0.8 %; HCT 40.8 % (40.0-50.0); HGB 13.6 g/dL (13.5-17.5); Immature Grans % 1.2 %; Lymphocytes % 14.8 %; MCH 28.9 pg (27.0-33.0); MCHC 33.3 % (32.0-36.0); MCV 87 fL (80-95); MPV 8.9 fL (8.0-11.0); Monocytes % 13.7 %; Neutrophils % 68.5 %; Platelet Count 159 10^3/uL (130-400); RDW 12.5 % (11.8-14.1); RDW-SD 40.1 fL; WBC 5.19 10^3/uL (4.4-10.8)
[2024-11-09 07:25] LABS: ALT 13 U/L (16-63); AST 15 U/L (15-37); Albumin 2.7 g/dL (3.4-5.0); Alkaline Phosphatase 48 U/L (46-116); Anion Gap 5.5 mmol/L (3-11); BUN 12 mg/dL (7-18); Bilirubin, Total 0.5 mg/dL (0.2-1.0); CO2 26.5 mmol/L (21.0-32.0); CREATININE 1.2 mg/dL (0.70-1.30); Calcium 8.4 mg/dL (8.5-10.1); Chloride 105 mmol/L (98-107); Estimated GFR 60.38 (mL/min/1.73m2); Glucose 146 mg/dL (74-106); Potassium 3.7 mmol/L (3.5-5.1); Sodium 137 mmol/L (136-145); Total Protein 6.1 g/dL (6.4-8.2)
[2024-11-09] MEDS: buPROPion-CR 150 MG TABCR PO (07:55)
[2024-11-09] MEDS: Aspirin E.C. 81 MG TABEC PO (07:55)
[2024-11-09] MEDS: Ascorbic Acid 500 MG TAB PO (07:55)
[2024-11-09] MEDS: Lisinopril 5 MG TAB PO (07:55)
--- NOTE | 2024-11-09 09:17 | NUR.NOTE ---
Nursing Note:Accessed chart to figure out disposition from visit yesterday. Found that he was admitted. Family called to find out which floor he was on.
--- NOTE | 2024-11-09 09:23 | NUR.NOTE ---
Daughter Almaz called asking for an update. She is not on pts hippa but when asked he advised this is his daughter. New Hippa form will be completed with pt to reflect this change. Will call back Almaz with update once hippa form has been updated
--- NOTE | 2024-11-09 09:57 | PDOC.CMIN ---
Date of service: 11/09/24 Time of Service: 09:58 Care Management Initial Assmt Initial Assessment Reason for Hospitalization: Acute Delirum Functional Status/Living Situation Patient Presentation: Karel was sitting in a recliner when CM met with him. He is polite and easy to engage in conversation. He lives in a mobile home with his and daughter in [place]. He drives and is independent at baseline. Karel served in the [employer] and is retired from the [employer]. Karel gets MOW (delivered occasionally) and is familiar with the [facility]. He is eager to discharge home and feels he will be well supported by his daughter and . New [facility] PT is recommended on discharge, pt agrees. Town of Residence: [place] Resides with: Child (Daughter Annie) and Spouse ( Leann) Significant Other/Family: Local Natural Supports: Lives with and daughter Employment Status: Retired Instrumental Activities of Daily Living (ADLs): Independent Medications Medication Management: No Issues/Barriers identified Physical Functioning/Mobility Assistive Device: Walker/Cane Advance Directives Advance Directives: Do you have an Advance Directive: N 04/22/16 09:42 AD On File at [facility]: N 01/03/15 14:31 Date Asked 11/08/24 11/08/24 18:01 AD Date Reviewed COLST On File at [facility] COLST Date Scanned Code Status Resuscitation Status Full Code Portal Pt does not currently have a portal and education provided: Yes Insurance Coverage/Financial Issues Insurance: BC/BS Federal Medicare Part [place] B [place] Care Team Visit Care Team Role Provider Type [facility] Primary Care Provider REPORT RECIPIENT Irma Child Other Providers CREATIVE SERVICES DESIGNER Ailin Gomez Other Providers CREATIVE SERVICES DESIGNER Soo Edwards Other Providers CREATIVE SERVICES DESIGNER Karrie Mcdonald RN Other Providers CREATIVE SERVICES DESIGNER Kiley Subramanian Other Providers CREATIVE SERVICES DESIGNER ALEXANDREA Ortiz Emergency Provider [facility] RELATIONS DIRECTOR Karel Subramanian MD Admit Provider [facility] STAFF PHYSICIAN Attending Provider Discharge Potential Discharge Needs: PCP F/U Appt Anticipated Barriers to Discharge: None Identified Patient/Family Education Needs: Review discharge instructions, discuss Ask Me Three Transportation: Private vehicle Plan: Karel will discharge home with New [facility] PT when medically ready for discharge. Family will provide transportation. He will follow up with his PCP and discharge plan of care as directed. CM will follow. Social Determinants of Health Screening Social Determinants of health last assessed in clinic: 11/09/24 Will the Patient Participate in the Screening?: Yes Do you worry about having a steady place to live?: no Problems where you live: no known problems In the past 12 months, have you had to go without electric, gas, oil or water in your home?: no 1. Within the past 12 months, we worried whether our food would run out before we got money to buy more.: Never true 2. Within the past 12 months, the food we bought just didn't last and we didn't have money to get more.: Never true Has lack of transportation kept you from medical appointments or from doing things needed for daily living?: no Has anyone in your life made you feel unsafe or unsupported?: no How hard is it for you to pay for the very basics like food, housing, medical care, and heating? Would you say it is:: Not hard at all Do you want help finding or keeping work or a job?: I do not need or want help If for any reason you need help with day-to-day activities such as bathing, preparing meals, shopping, managing finances, etc., do you get the help you need?: I don?t need any help How often do you feel lonely or isolated from those around you?: Never Do you speak a language other than Lithuanian at home?: No Does the patient want assistance with any of the above?: No PFSH All Active Problems (Updated 11/09/24 @ 00:40 by ROBBIE MATHIS) Acute delirium (Acute) Hypertension (Chronic) Diabetes (Chronic) Pneumonia (Acute) Sepsis (Acute) Social History Smoking/Tobacco Use Status: Never Smoking risk assessment performed?: Yes Alcohol Intake: never Drug use: Never Substance use type: does not use Housing: other
--- NOTE | 2024-11-09 10:22 | TELEP.MEDR_ITS ---
Date of service: 11/09/24 Time of Service: 10:23 Telepharmacy Home Med Rec Allergies Allergies: No Known Allergies Allergy (Verified 11/08/24 20:51) Interview Person Interviewed: Patient, [facility] med list from [facility] Quality Quality of Interview/Accuracy of Medication List: Good Sources Sources used to compile medication list: [employer] Medication List and Patient List Changes made to Home Medication List: ADDITIONS: None DELETIONS: Bupropion Glipizide Lisinopril Simvastatin CHANGES: Metformin to 1000mg HS Additional Notes Additional Notes: Pt states Metformin is his only medication taken at home. Recommended Changes Recommended Changes(reason for recommendation): None Attestation: The home medication list is now updated to the best of my knowledge and is ready to be reconciled by the provider. Please contact the [facility] Pharmacist at for any questions.
--- NOTE | 2024-11-09 11:05 | W.PM.HP.N ---
Date of service: 11/09/24 [facility] All Active Problems (Updated 11/09/24 @ 00:40 by ROBBIE MATHIS) Acute delirium (Acute) Hypertension (Chronic) Diabetes (Chronic) Pneumonia (Acute) Sepsis (Acute) Social History Smoking/Tobacco Use Status: Never Smoking risk assessment performed?: Yes Alcohol Intake: never Drug use: Never Substance use type: does not use Housing: other Meds Allergies and Home Medications Allergies Allergy/AdvReac Type Severity Reaction Status Date / Time No Known Allergies Allergy Verified 11/08/24 20:51 Home Medications ?Medication ?Instructions ?Recorded ?Confirmed ?Type metformin 500 mg tablet,extended 1,000 mg PO HS 01/03/15 11/09/24 History release 24 hr Results Labs 11/09/24 06:25 11/09/24 06:25 Labs: Laboratory Results - last 24 hr 11/08/24 11/08/24 11/08/24 18:08 19:50 21:40 WBC 9.02 RBC 5.36 Hgb 15.5 Hct 46.8 MCV 87 MCH 28.9 MCHC 33.1 RDW 12.6 Plt Count 200 MPV 9.2 Immature Gran % 1.1 Neutrophils % 86.6 Lymphocytes % 4.7 Monocytes % 6.7 Eosinophils % 0.3 Basophils % 0.6 Nucleated RBC % 0.0 Absolute Neutrophils 7.82 H Absolute Lymphocytes 0.42 L Absolute Monocytes 0.60 Absolute Eosinophils 0.03 Absolute Basophils 0.05 VBG Lactate 3.5 H* Sodium 134 L Potassium 4.3 Chloride 100 Carbon Dioxide 27.2 Anion Gap 6.8 BUN 16 Creatinine 1.4 H Est GFR (CKD-EPI 2020) 50.18 Glucose 216 H Calcium 9.1 Magnesium 1.8 Total Bilirubin 0.7 AST 18 ALT 18 Alkaline Phosphatase 70 Troponin I 22 22 Total Protein 7.6 Albumin 3.5 Lipase 58 Urine Color Yellow Urine Clarity Clear Urine pH 5.5 Ur Specific [place] 1.020 Urine Protein 100 H Urine Ketones Negative Urine Blood Trace-lysed H Urine Nitrite Negative Urine Bilirubin Negative Urine Urobilinogen 0.2 Ur Leukocyte Esterase Negative Urine RBC 3-5 H Urine WBC Negative Ur Epithelial Cells Negative Urine Crystals Rare Amorphous Urine Bacteria Rare Urine Casts 0-2 Hyaline Urine Mucus Trace Urine Other Rare [place] Ur Culture Indicated? No Urine Glucose 500 H COVID-19 Source Nasopharynx SARS-CoV-2 (PCR) Negative Influenza Type A (PCR) Negative Influenza Type B (PCR) Negative RSV (PCR) Negative 11/08/24 11/09/24 22:02 06:25 WBC 5.19 RBC 4.70 Hgb 13.6 Hct 40.8 MCV 87 MCH 28.9 MCHC 33.3 RDW 12.5 Plt Count 159 MPV 8.9 Immature Gran % 1.2 Neutrophils % 68.5 Lymphocytes % 14.8 Monocytes % 13.7 Eosinophils % 1.0 Basophils % 0.8 Nucleated RBC % 0.0 Absolute Neutrophils 3.56 Absolute Lymphocytes 0.77 L Absolute Monocytes 0.71 Absolute Eosinophils 0.05 Absolute Basophils 0.04 VBG Lactate 2.5 H* Sodium 137 Potassium 3.7 Chloride 105 Carbon Dioxide 26.5 Anion Gap 5.5 BUN 12 Creatinine 1.2 Est GFR (CKD-EPI 2020) 60.38 Glucose 146 H Calcium 8.4 L Magnesium Total Bilirubin 0.5 AST 15 ALT 13 L Alkaline Phosphatase 48 Troponin I Total Protein 6.1 L Albumin 2.7 L Lipase Urine Color Urine Clarity Urine pH Ur Specific [place] Urine Protein Urine Ketones Urine Blood Urine Nitrite Urine Bilirubin Urine Urobilinogen Ur Leukocyte Esterase Urine RBC Urine WBC Ur Epithelial Cells Urine Crystals Urine Bacteria Urine Casts Urine Mucus Urine Other Ur Culture Indicated? Urine Glucose COVID-19 Source SARS-CoV-2 (PCR) Influenza Type A (PCR) Influenza Type B (PCR) RSV (PCR) Last Vital Signs Temp 37.1 C 11/09/24 07:48 Pulse 68 11/09/24 07:48 Resp 19 11/09/24 07:48 BP 121/61 11/09/24 07:48 Pulse Ox 98 11/09/24 07:48
[2024-11-09] MEDS: Azithromycin 250 MG TAB PO (12:03)
--- NOTE | 2024-11-09 14:42 | IN_ITS ---
PT Notes Visit Reasons: mental status change Inpatient Physical Therapy Evaluation Date: 11/09/2024 Referring Doctor: Dr. Buckley PT Orders: PT CONSULT: Safety consult for discharge, fall safety assessment Precautions: Fall risk Patient Profile/Admitting Diagnosis: Patient is 84-year-old male presented to the ED via EMS with fever, weakness, cough x 3 days and confusion. Workup in the ED included chest x-ray showing atelectasis with left pneumonia, EKG showing PVCs. Patient was diagnosed with delirium, hypertension, pneumonia. Patient admitted for observation and further medical monitoring. PMHX: Hypertension, diabetes, pneumonia, right proximal humeral fracture 05/06/2024 Social History/Home Situation: Patient resides with daughter and his in [place]. Patient with lift assist chair. Patient ambulates with cane throughout home patient has assistance with ADLs, meal prep, transportation, shopping. Equipment Owned/DME: Cane Subjective: Patient reports she is hoping to go home soon Objective: [] General Observation: Elderly man seated in bedside chair. Mental Status: Alert and oriented to person only, poor historian poor recall of events that led to admission. Poor historian, he believes he lives in [place] patient currently resides in [place] with daughter. Able to follow instructions requires continuous cueing for safety Pain: Bilateral thigh discomfort with standing Vital Signs: Monitored by nursing ROM: Right Upper Extremity: Shoulder flexion and abduction limited to less than 50% range elbow wrist and hand within functional limits Left Upper Extremity: Within functional limits BLE: Limited hip extension, posterior pelvic tilt fixed, shortened hamstring length bilaterally dorsiflexion to neutral Strength: Right Upper Extremity: 3 -/5 shoulder elbow 3/5 sanitation worker cleaning equipment good Left Upper Extremity: Grossly 4/5 BLE: Grossly hip abduction 3 -/5 hip flexion 3 -/5 hip extension 2+/5 knees extension 3 -/5, flexion 2+/5, ankle 3/5 Sensation: Intact Bed Mobility/Transfers: Supine to sit mod assist of 1 Sit to supine mod assist of 1 Sit to stand from standard height chair mod assist of 1 Sit to stand from elevated height surface greater than 20 inches contact-guard assist of 1 Step turn transfers with FWW with min assist and cues to stay with walker. As patient preference to reach for surface with 1 upper extremity while holding onto the walker with the other placing him at risk for falls Gait: ambulate with FWW 25 feet with min A poor foot clearance , B knee flexion, reduced step length Balance: Static Sitting: Normal Dynamic Sitting: Fair Static Standing: Fair with upper extremity support Dynamic Standing: Fair minus with upper extremity support Special Tests: Mobility Limitations Standardized Measure [facility] AM-PAC 6 clicks Basic Mobility Inpatient Short Form: Raw Score: 15 CMS Score: 57.70% Informed Consent/Education: Patient instructed in purpose of PT consult and plan of care. Treatment: 55461: ambulation with FWW with CGA with w/c follow for safety 60 feet x2 demonstrating reciprocal pattern with dtr providing CGA on second walk stairs: 2 6 steps and 3 4 steps with B rails CGA step to pattern. ( Dtr observed stairs) Assessment: Patient is a 84 year old male referred to physical therapy services with the diagnosis of delerium. Patient presents with impaired hamstring length BLE, impaired hip/ trunk extension, impaired ROM Right shoulder s/p non healing humeral fracture. impaired balance reactions, limiting his ability to perform bed mobility , transfers and ambulation including stairs without assistance. Pt also demonstrates memory/ cognitive impairment. Recommend pt to have assistance for all mobility with the FWW that was fitted and issued to him. Pt scored 15 on [facility] short mobility form indicating need for assistance and risk for falls . Patient's daughter instructed in transfer, ambulation, and stair techniques with use of gait belt educated she could utilize a leather belt if unable to obtain gait belt. Daughter demonstrates good technique in ability to carryover recommendations. Patient is assessed as a Moderate 85153 complexity based on the following: History: 84-year-old male with past medical history as stated above Examination: Patient demonstrates impaired strength, balance, range of motion deficits placing him at risk for falls with limitations in bed mobility, transfers, ambulation and stair performance. Presentation: evolving Decision Making: moderate Goals: N/A pt discharge to home Plan of Care/Treatment Plan: N/A pt discharge to home with HHPT and assistance from daughter DISCHARGE RECOMMENDATIONS: [] [] Home with no services [] [X] Home with HH PT use of F WW for mobility and assist of 1 [] Home with outpatient PT [] [] SNF for continued rehabilitation to improve transfers , gait , balance and strength [] [facility] Care [] [] SNF versus LTC based on ability to participate and progress [] TREATMENT CODE/TIME: 07922, 80338/ [id number], [id number]
--- NOTE | 2024-11-09 16:15 | W.PM.DS.N ---
Date of service: 11/10/24 Time of Service: 09:28 DS: Diagnosis Discharge Diagnosis (1) Sepsis: Status: Acute (2) Pneumonia: Status: Acute (3) Diabetes: Status: Chronic (4) Hypertension: Status: Chronic (5) Acute delirium: Status: Acute Discharge Plan Disposition Patient Disposition: Home W/Home Health Services Condition: Stable Discharge Details Reason For Visit: mental status change Admit Date/Time: 11/08/24 22:30 Admit Provider: Karel Subramanian Attending Provider: Karel Subramanian Primary Care Provider: [place] Hospital Course: 84 yo M with history of diabetes and hypertension who presented with a reported fever to 103 at home and confusion and general weakness. He did technically meet sepsis criteria with elevated HR, RR, and lactate. Evaluation in the ED did not show a clear source of infection but did show atelectasis vs infiltrate in left lingula. He did have a cough. Viral PCRs were negative. He was treated with ceftriaxone and azithromycin for pneumonia. He never had a fever here, WBC was normal. His lactate was abnormal at 3.5 and trended down with hydration. His creatinine improved from 1.4 to 1.2. He was sent home with amox/clav and azithromycin for a 5 day course for pneumonia. He was feeling much better by the day following admission and requested to go home. He worked with PT twice on the day of discharge and did much better by the afternoon walking and with stairs. Home health PT was recommended. He did have 3-5 RBC on his u/a and 100 protein. This should be followed as outpatient. The medication list at admission included several medications he no longer took, including lisinopril. These were given the morning of his admission but were stopped when this was clarified. His blood pressure was lightly low after getting lisinopril 11/09, and he was observed overnight. His blood pressure was normal the day of discharge without medication. If lisinopril resumed to treat diabetic nephropathy, I would recommend a 2.5mg dose. The daughter stated he had not had an A1c in a while and it returned at 8.6% He should work on diabetes control with his PCP. PCP Follow up: Final blood cultures Microscopic hematuria and proteinuria Diabetes control Follow up appointment within 1-2 weeks Home Meds and New Rx's Prescriptions: New azithromycin 250 mg Tablet 250 mg PO Q24H 3 Days Qty: 3 0RF amoxicillin-pot clavulanate 875-125 mg tablet 1 tab PO BID Qty: 7 0RF Rx Instructions: start 11/10 Continued metformin 500 MG tablet extended release 24 hr 1,000 mg PO HS Discharge Instructions Instructions: Pneumonia, Adult (DC) Additional Instructions: You have a pneumonia. You should take 3 more days of antibiotics for this Your blood sugars have been a little high. You should talk to your primary care about adding another medication to control your blood sugar. Stand Alone Forms: Nursing Discharge Form [facility] - (PCP office will give you call to make a follow up appointment for within 1 to 2 weeks.) Activity:: Activity as Tolerated Equipment/Supplies:: No Equipment Needed Diet:: Carb Counting Discharge Orders Discharge Orders: Discharge Order (Routine); Ordered 11/09/24 Ordered By: Mack Buckley Discharge Data Discharge Date/Time-TO BE ENTERED AT DEPARTURE: 11/10/24 11:32 DS: Summary Time Spent with Patient providing and/or coordinating discharge services: Greater than 30 minutes Status at Discharge Functional status at discharge: uses cane/walker Overall status at discharge: patient is back to baseline Mental Status: mental status grossly normal Speech and Movement: speech and movement normal Mood: congruent mood Affect: normal affect Quality:SDOH Health Related Social Needs: No Data to Display Exam Narrative Exam Narrative: GEN: alert, NAD, conversant, oriented to person, place, not date (baseline per daughter Cardiovascular: Regular rate and rhythm no rubs or gallops Lungs: Clear to auscultation bilaterally with good air exchange Abdomen: Soft nontender nondistended bowel sounds active Extremities: no cyanosis clubbing or edema Psych Mental Status: mental status grossly normal Speech and Movement: speech and movement normal Mood: congruent mood Affect: normal affect DS: Data Vitals/I&O Vitals and I&O: Vital Signs Temperature 36.6 C 11/09/24 16:02 Temperature Source Temporal Artery Scan 11/09/24 16:02 Pulse 67 11/09/24 16:02 Pulse Rhythm Regular 11/09/24 01:03 Respiratory Rate 18 11/09/24 16:02 Respiratory Effort Normal 11/09/24 01:03 Respiratory Depth Normal 11/09/24 01:03 Respiratory Pattern Normal 11/08/24 18:01 Blood Pressure 87/53 L 11/09/24 16:02 Blood Pressure Position Supine 11/08/24 17:53 Pulse Oximetry 99 11/09/24 16:02 Oxygen Delivery Method Room Air 11/09/24 16:02 Oxygen Flow Rate 0 11/09/24 16:02 Pain Level 0 11/09/24 11:51 Comment Notifying RN 11/09/24 16:02 Intake & Output 11/08/24 11/09/24 11/09/24 23:59 11:59 23:59 Intake Total 1300 / 1300 1050 / 1050 Output Total 350 / 350 Balance 1300 / 1300 700 / 700 Weight 114.6 kg 108 kg Intake: IV 1300 / 1300 1000 / 1000 Oral 50 / 50 Output: Urine 350 / 350 Other: Comment Brief check - clean and dry Stool Size Copious Stool Characteristics Soft Brown Data Completed and Pending Labs on day of discharge: Labs from last 24 hours 11/09/24 11/08/24 11/08/24 06:25 22:02 21:40 WBC 5.19 RBC 4.70 Hgb 13.6 Hct 40.8 MCV 87 MCH 28.9 MCHC 33.3 RDW 12.5 Plt Count 159 MPV 8.9 Immature Gran % 1.2 Neutrophils % 68.5 Lymphocytes % 14.8 Monocytes % 13.7 Eosinophils % 1.0 Basophils % 0.8 Nucleated RBC % 0.0 Absolute Neutrophils 3.56 Absolute Lymphocytes 0.77 L Absolute Monocytes 0.71 Absolute Eosinophils 0.05 Absolute Basophils 0.04 VBG Lactate 2.5 H* Sodium 137 Potassium 3.7 Chloride 105 Carbon Dioxide 26.5 Anion Gap 5.5 BUN 12 Creatinine 1.2 Est GFR (CKD-EPI 2020) 60.38 Glucose 146 H Calcium 8.4 L Magnesium Total Bilirubin 0.5 AST 15 ALT 13 L Alkaline Phosphatase 48 Troponin I 22 Total Protein 6.1 L Albumin 2.7 L Lipase Urine Color Urine Clarity Urine pH Ur Specific [place] Urine Protein Urine Ketones Urine Blood Urine Nitrite Urine Bilirubin Urine Urobilinogen Ur Leukocyte Esterase Urine RBC Urine WBC Ur Epithelial Cells Urine Crystals Urine Bacteria Urine Casts Urine Mucus Urine Other Ur Culture Indicated? Urine Glucose COVID-19 Source SARS-CoV-2 (PCR) Influenza Type A (PCR) Influenza Type B (PCR) RSV (PCR) 11/08/24 11/08/24 19:50 18:08 WBC 9.02 RBC 5.36 Hgb 15.5 Hct 46.8 MCV 87 MCH 28.9 MCHC 33.1 RDW 12.6 Plt Count 200 MPV 9.2 Immature Gran % 1.1 Neutrophils % 86.6 Lymphocytes % 4.7 Monocytes % 6.7 Eosinophils % 0.3 Basophils % 0.6 Nucleated RBC % 0.0 Absolute Neutrophils 7.82 H Absolute Lymphocytes 0.42 L Absolute Monocytes 0.60 Absolute Eosinophils 0.03 Absolute Basophils 0.05 VBG Lactate 3.5 H* Sodium 134 L Potassium 4.3 Chloride 100 Carbon Dioxide 27.2 Anion Gap 6.8 BUN 16 Creatinine 1.4 H Est GFR (CKD-EPI 2020) 50.18 Glucose 216 H Calcium 9.1 Magnesium 1.8 Total Bilirubin 0.7 AST 18 ALT 18 Alkaline Phosphatase 70 Troponin I 22 Total Protein 7.6 Albumin 3.5 Lipase 58 Urine Color Yellow Urine Clarity Clear Urine pH 5.5 Ur Specific [place] 1.020 Urine Protein 100 H Urine Ketones Negative Urine Blood Trace-lysed H Urine Nitrite Negative Urine Bilirubin Negative Urine Urobilinogen 0.2 Ur Leukocyte Esterase Negative Urine RBC 3-5 H Urine WBC Negative Ur Epithelial Cells Negative Urine Crystals Rare Amorphous Urine Bacteria Rare Urine Casts 0-2 Hyaline Urine Mucus Trace Urine Other Rare [place] Ur Culture Indicated? No Urine Glucose 500 H COVID-19 Source Nasopharynx SARS-CoV-2 (PCR) Negative Influenza Type A (PCR) Negative Influenza Type B (PCR) Negative RSV (PCR) Negative 11/08/24 21:40 Blood Blood Culture - Pending 11/08/24 19:50 Blood Blood Culture - Pending Preliminary micro results at discharge 11/08/24 21:40 Blood Culture - Pending Blood 11/08/24 19:50 Blood Culture - Pending Blood PFSH All Active Problems (Updated 11/09/24 @ 17:37 by Mack Buckley) DVT prophylaxis (Acute) Acute delirium (Acute) Hypertension (Chronic) Diabetes (Chronic) Pneumonia (Acute) Sepsis (Acute) Social History Smoking/Tobacco Use Status: Never Smoking risk assessment performed?: Yes Alcohol Intake: never Drug use: Never Substance use type: does not use Housing: other Time Spent with Patient Time Spent with Patient: <45 minutes Time was spent: preparing to see the patient(eg.review tests), obtaining and/or reviewing separately otained hiistory, ordering medications,tests, procedures, referring, communicating with other health home care assistant, indepentently interpreting results, counseling the patient and care coordination
--- NOTE | 2024-11-09 17:31 | PGE_ITS ---
Date of Service Date of service: 11/09/24 Time of Service: 17:32 Assessment and Plan Assessment and plan (1) Sepsis: Status: Acute Assessment and plan: Met criteria for severe sepsis on admission with elevated HR, RR, lactate, with source presumed pneumonia. BP a little soft, he got lisinopril this AM that had been stopped, but overall hemodynamically improved/stable. Continue ceftriaxone/azithro blood cx pending. (2) Pneumonia: Status: Acute Assessment and plan: As above (3) Diabetes: Status: Chronic Assessment and plan: Per notes from the ED the patient knows longer is on metformin. His glucose did show a value of 216 but this is not fasting obviously. On sliding scale and monitor. Get A1c (4) Acute delirium: Status: Acute Assessment and plan: Resolved, at baseline now. (5) DVT prophylaxis: Status: Acute Assessment and plan: enoxaparin Subjective Subjective Patient reports: feels better, tolerating a regular diet and voiding w/o difficulty; denies diarrhea, vomiting, shortness of breath or fever Interval history since last seen: He feels better. Does have a cough but does not feel short of breath. Daughter thinks he is back at his baseline mentally, mild dementia, but she is worried with his weakness because she brought him yesterday when he couldn't walk. Exam Narrative Exam Narrative: GEN: alert, NAD, conversant Cardiovascular: Regular rate and rhythm no rubs or gallops Lungs: Clear to auscultation bilaterally with good air exchange Abdomen: Soft nontender nondistended bowel sounds active Extremities: no cyanosis clubbing or edema Psych: he is alert but oriented person, knows he is at the hospital but states [facility]. Objective Last Vital Signs Temp 36.6 C 11/09/24 16:02 Pulse 67 11/09/24 16:02 Resp 18 11/09/24 16:02 BP 96/60 L 11/09/24 16:40 Pulse Ox 99 11/09/24 16:02 Laboratory Results - last 24 hr 11/08/24 11/08/24 11/08/24 18:08 19:50 21:40 WBC 9.02 RBC 5.36 Hgb 15.5 Hct 46.8 MCV 87 MCH 28.9 MCHC 33.1 RDW 12.6 Plt Count 200 MPV 9.2 Immature Gran % 1.1 Neutrophils % 86.6 Lymphocytes % 4.7 Monocytes % 6.7 Eosinophils % 0.3 Basophils % 0.6 Nucleated RBC % 0.0 Absolute Neutrophils 7.82 H Absolute Lymphocytes 0.42 L Absolute Monocytes 0.60 Absolute Eosinophils 0.03 Absolute Basophils 0.05 VBG Lactate 3.5 H* Sodium 134 L Potassium 4.3 Chloride 100 Carbon Dioxide 27.2 Anion Gap 6.8 BUN 16 Creatinine 1.4 H Est GFR (CKD-EPI 2020) 50.18 Glucose 216 H Calcium 9.1 Magnesium 1.8 Total Bilirubin 0.7 AST 18 ALT 18 Alkaline Phosphatase 70 Troponin I 22 22 Total Protein 7.6 Albumin 3.5 Lipase 58 Urine Color Yellow Urine Clarity Clear Urine pH 5.5 Ur Specific [place] 1.020 Urine Protein 100 H Urine Ketones Negative Urine Blood Trace-lysed H Urine Nitrite Negative Urine Bilirubin Negative Urine Urobilinogen 0.2 Ur Leukocyte Esterase Negative Urine RBC 3-5 H Urine WBC Negative Ur Epithelial Cells Negative Urine Crystals Rare Amorphous Urine Bacteria Rare Urine Casts 0-2 Hyaline Urine Mucus Trace Urine Other Rare [place] Ur Culture Indicated? No Urine Glucose 500 H COVID-19 Source Nasopharynx SARS-CoV-2 (PCR) Negative Influenza Type A (PCR) Negative Influenza Type B (PCR) Negative RSV (PCR) Negative 11/08/24 11/09/24 22:02 06:25 WBC 5.19 RBC 4.70 Hgb 13.6 Hct 40.8 MCV 87 MCH 28.9 MCHC 33.3 RDW 12.5 Plt Count 159 MPV 8.9 Immature Gran % 1.2 Neutrophils % 68.5 Lymphocytes % 14.8 Monocytes % 13.7 Eosinophils % 1.0 Basophils % 0.8 Nucleated RBC % 0.0 Absolute Neutrophils 3.56 Absolute Lymphocytes 0.77 L Absolute Monocytes 0.71 Absolute Eosinophils 0.05 Absolute Basophils 0.04 VBG Lactate 2.5 H* Sodium 137 Potassium 3.7 Chloride 105 Carbon Dioxide 26.5 Anion Gap 5.5 BUN 12 Creatinine 1.2 Est GFR (CKD-EPI 2020) 60.38 Glucose 146 H Calcium 8.4 L Magnesium Total Bilirubin 0.5 AST 15 ALT 13 L Alkaline Phosphatase 48 Troponin I Total Protein 6.1 L Albumin 2.7 L Lipase Urine Color Urine Clarity Urine pH Ur Specific [place] Urine Protein Urine Ketones Urine Blood Urine Nitrite Urine Bilirubin Urine Urobilinogen Ur Leukocyte Esterase Urine RBC Urine WBC Ur Epithelial Cells Urine Crystals Urine Bacteria Urine Casts Urine Mucus Urine Other Ur Culture Indicated? Urine Glucose COVID-19 Source SARS-CoV-2 (PCR) Influenza Type A (PCR) Influenza Type B (PCR) RSV (PCR) Time Spent with Patient Time Spent with Patient: 35-49 minutes Time was spent: preparing to see the patient(eg.review tests), obtaining and/or reviewing separately otained hiistory, ordering medications,tests, procedures, referring, communicating with other health health care marketing specialist, indepentently interpreting results, counseling the patient and care coordination
[2024-11-09 17:48] LABS: Hemoglobin A1C 8.6 % (<5.7)
[2024-11-09] MEDS: cefTRIAXone 2 GM/50 ML BAG IVPB (18:00)
[2024-11-09] MEDS: Enoxaparin 40 MG/0.4 ML SYR SC (21:46)
[2024-11-10 04:55] VITALS: BP 112/65; PULSE 70; RESP 20; TEMP 36.6; O2SAT 97
[2024-11-10 07:44] VITALS: BP 113/68; PULSE 65; RESP 18; TEMP 37.1; O2SAT 98
--- NOTE | 2024-11-10 09:17 | CMDISCH_ITS ---
Date of service: 11/10/24 Time of Service: 09:17 LACE Index Scoring Tool Questions: Length of Stay (in days): 2 Was the patient admitted via the E.D.?: Yes E.D. Visits: 3 Answers: Total Score: 8 Risk of Readmission: Low Risk Care Management Discharge Plan Reason for Hospitalization: Mental Status Change Discharge Plan: Karel is discharged home with Alexandre YOUNG RN, PT, OT, SALES ENGINEERING MANAGER services via private vehicle with family. He will follow up with his community providers and discharge plan of care as directed. Patient/Family Education Needs: Review discharge instructions and plan to follow up after discharge. Discuss ask me three. Services Needed at Discharge: Home Health Care Services (Alexandre Greg RN, PT,OT,SALES ENGINEERING MANAGER) SDOH Health Related Social Needs: No Data to Display
--- NOTE | 2024-11-10 09:24 | PDOC.HHF2F_ITS ---
Home Health Referral Home Health Orders Clinical synopsis of why skilled professionals are needed: 84 yo M with history of diabetes and hypertension who presented with a reported fever to 103 at home and confusion and general weakness. He did technically meet sepsis criteria with elevated HR, RR, and lactate. Evaluation in the ED did not show a clear source of infection but did show atelectasis vs infiltrate in left lingula. He did have a cough. Viral PCRs were negative. He was treated with ceftriaxone and azithromycin for pneumonia. He never had a fever here, WBC was normal. His lactate was abnormal at 3.5 and trended down with hydration. His creatinine improved from 1.4 to 1.2. He was sent home with amox/clav and azithromycin for a 5 day course for pneumonia. He was feeling much better by the day following admission and requested to go home. He worked with PT twice on the day of discharge and did much better by the afternoon walking and with stairs. Home health PT was recommended. He did have 3-5 RBC on his u/a and 100 protein. This should be followed as outpatient. The medication list at admission included several medications he no longer took, including lisinopril. These were given the morning of his admission but were stopped when this was clarified. His blood pressure was lightly low after getting lisinopril 11/09, and he was observed overnight. His blood pressure was normal the day of discharge without medication. If lisinopril resumed to treat diabetic nephropathy, I would recommend a 2.5mg dose. The daughter stated he had not had an A1c in a while and it returned at 8.6% He should work on diabetes control with his PCP. PCP Follow up: Final blood cultures Microscopic hematuria and proteinuria Diabetes control Follow up appointment within 1-2 weeks Medical diagnosis necessitation home health referral: weakness associated with pneumonia, gait instability, diabetes Registered Nurse: Check all that apply Instruct on new or changed medication(s)/assess compliance: Ordered Assess for exacerbation of medical condition, instruct patient/caregivers on signs and symptoms to report for early detection: Ordered Physical Therapist: Check all that apply Increase strength & endurance for safe mobility at home: Ordered To design/establish home maintenance program: Ordered Home safety evaluation and teaching/gait training including stair management (if applicable): Ordered Occupational Therapist: Evaluate and treat for patient unable to perform ADL/IADL/self-care: Ordered Unit Aide Tech: Assist with community resources: Ordered Assist with residential care planning: Ordered Home Bound Status Requires the aid of supportive device (check all that apply): Cangabriel and Jeffery Describe why leaving home would require a considerable and taxing effort: Requires frequent rest periods Encounter Date and Reason: I certify that a FTF encounter for this patient was performed on November 10, 2024 and that such encounter was related to the primary reason the patient requires home health services. The encounter was conducted in the following manner: * By me as the certifying physician, BATCH MIXER OPERATOR, PA or * By an inpatient physician, BATCH MIXER OPERATOR or PA during an inpatient stay who communicated findings to me, Certification And Authentication I certify that I composed the above information based on my clinical judgment relating to this patient's medical condition and, if applicable, clinical findings communicated to me by the NPP or inpatient physician who performed the FTF encounter. Name of Provider that will be monitoring home health services: Olga Hassan
--- NOTE | 2024-11-10 09:39 | PT.INTREAT ---
PT Notes Visit Reasons: mental status change Inpatient Physical Therapy Treatment Note [facility] Date: 11/10/2024 Requested by to approach patient for treatment this date as he did not discharge to home as planned on 11/09/2024. To assess further need for skilled PT interventions. PRECAUTIONS: Standard, fall risk SUBJECTIVE: Patient reports he slept well overnight and is eager to return home. OBJECTIVE: Presented seated in chair agreeable to participate. Patient able to recall where he lives in [place] and describe home and who he lives with on this date. No disorientation noted. ? PAIN: Denied pain just stiffness in bilateral thighs left greater than right prior to ambulation. Patient stated resolved after walking VITALS: ???Monitored via nursing Therapeutic Activities ([id number][]): Direct one-on-one instruction in dynamic activities to improve functional performance. ?? Provided skilled cues and instruction on performance and technique throughout. Patient education regarding pacing and breathing techniques to maximize activity tolerance? BED MOBILITY/TRANSFERS? Supine-sit: CGA? Sit-supine: min A for LEs into bed ? Sit-stand: SBA x 5 trials? Stand-sit: SBA ? x 5 trials? Bed-Chair: SBA with FWW ? x 2 trials? Chair-bed: SBA with FWW x 2 trials ambulation: Facilitated safe and correct performance of level surface ambulation covering a distance of 75 feet x 3 using use front wheeled walker with SBA and wheelchair follow for safety.and seated rest between distances. Did not report of any increased pain. Denied headache, chest pain, and lightheadedness throughout activity. Minimal verbal cueing provided for AD management, directional changes, and posture. STAIRS: 2 6 steps and 3 4 steps with B rails SBA step to pattern? ASSESSMENT:? Pt remained in facility overnight for further observation. Pt participated well in session today. Pt demonstrates ability to ambulate with SBA with FWW, performed stairs with rails SBA on this date. Pt demonstrates adequate foot clearance and reciprocal pattern . PLAN: Cont per POC until discharge to home TREATMENT CODE/TIME:61877/ [id number] DISCHARGE RECOMMENDATION: Home with services. Patient will benefit from home health PT services in order to progress mobility level using least restrictive assistive ambulatory device, assess home safety, identify additional equipment needs, and establish a functional maintenance program that will increase ability of patient to remain at home.
[2024-11-10] MEDS: Azithromycin 250 MG TAB PO (11:06)
[2024-11-10 11:11] VITALS: BP 118/68; PULSE 72; RESP 18; TEMP 36.6; O2SAT 99
== END 2024-11-10 11:32 | disposition home health service (06) ==
LOC: ER 23:55 → MS 11-09 00:40
PROVIDERS: Admitting Provider Hospitalist; Emergency Provider Physician Assistant; PCP Physician Assistant; Responsible Provider Family Medicine; Visit Provider Hospitalist
DX: A41.9 Sepsis, unspecified organism (principal); J18.9 Pneumonia, unspecified organism; E11.9 Type 2 diabetes mellitus without complications; I10 Essential (primary) hypertension; R41.0 Disorientation, unspecified; E87.20 Acidosis, unspecified; R53.1 Weakness; E78.5 Hyperlipidemia, unspecified; R31.29 Other microscopic hematuria; R05.9 Cough, unspecified
CPT/HCPCS: 00123; 36415; 80053; 83690; 87040; 87637; 93005; 96365; 96366; 96368; 96372; 97162; 97530; 99285; J1650; 71045; 81003; 81015; 83036; 83605; 83735; 84484; 85025; 93010; 99222; 99232; 99239; G0378; J0456; J0696

== ENCOUNTER 2025-03-18 07:32 | Emergency (ER) | payer OTHER, SELFPAY ==
[2025-03-18] VITALS (56 sets, daily range): BP systolic 86–120; BP diastolic 44–73; PULSE 63–118; RESP 14–29; TEMP 36.6–37.3; O2SAT 92–98
--- NOTE | 2025-03-18 07:00 | RT.EKG_ITS ---
APPROVED REPORT Exam: Resting ECG Reason for Exam: weakness Patient Location: E HR:118 bpm ECG Measurements Heart Rate 118 AXIS OR 148 P 62 QRSd 94 QRS -62 QT 321 T [id number] QTc 442 Conclusion Sinus tachycardia...rate> 99 Paired ventricular premature complexes...sequence of 2 V complexes Inferior infarct, old...Q >35mS, II III aVF Nonspecific T abnormalities, lateral leads...T <-0.10mV, I aVL V5 V6 I have reviewed and interpreted ECG and agree with software generated interpretation.
--- NOTE | 2025-03-18 07:15 | DI.CT_ITS ---
Exam(s) CT HEAD WO EXAM: CT HEAD WO CLINICAL HISTORY: confused, weak, eval for bleed and stroke. TECHNIQUE: Imaging Protocol: Axial computed tomography images with coronal and sagittal reformatted images were created and reviewed COMPARISON: No exams were available for comparison FINDINGS: There are no skull fractures. There is no fluid in the visualized paranasal sinuses. There is no evidence of intracranial hemorrhage, mass effect, or shift of midline structures. There are no extra-axial fluid collections. The ventricles are not enlarged or shifted and there is no blood within the ventricular system nor within the basal cisterns. There is moderate symmetrical atrophy. Size of the ventricles is commensurate with the size of the overlying cortical sulci. No evidence of obvious acute infarct. IMPRESSION: No acute intracranial findings on this noninfused CT scan of the brain. Symmetrical age-related involutional change. Called by myself to ER physician 03/18/2025 at 8:20 a.m. RADIATION DOSE DELIVERED: 948.96mGy.cm Total DLP DATA REPOSITORY: All CT scans at this facility are submitted to the National Radiology Data Registry (NRDR) Dose Index Registry (DIR) with the [employer] (ACR). RADIATION OPTIMIZATION: All CT scans at this facility use at least one of these dose optimization techniques: automated exposure control; mA and/or kV adjustment per patient size (includes targeted exams where dose is matched to clinical indication); or iterative reconstruction.
--- NOTE | 2025-03-18 07:27 | W.ED.GENAD ---
Discharge Plan Disposition Patient Disposition: Home Condition: Good Discharge Details Clinical Impression: Dehydration, Acute confusion Primary Care Provider: Cha Hurt ED Provider: Carroll Esqueda Home Meds and New Rx's Prescriptions: No Action urea 40 % cream 1 applic topical DAILY Qty: 28.35 3RF ketoconazole 2 % cream 1 applic topical DAILY Qty: 120 6RF Rx Instructions: Apply to 1g to skin and toenails once daily metformin 500 MG tablet extended release 24 hr 1,000 mg PO HS empagliflozin 25 mg tablet 12.5 mg PO DAILY rosuvastatin [Crestor] 5 mg tablet 5 mg PO DAILY fexofenadine [Maria Elena Allergy] 1 tab PO DAILY Patient Comments: For seasonal/environmental allergies per pt's daughter 03/18/25 guar gum [Benefiber (guar gum)] 1 tab PO DAILY Discharge Instructions Instructions: Dehydration, Adult ED Additional Instructions: At this time your laboratory workup has returned reassuring. You do appear to have been mildly dehydrated. After the fluids your lactate has normalized, your mentation has improved and your strength is returned. However it is critically important that you continue to monitor closely for any changes or worsening of your symptoms. Please continue to hydrate well at home. If you notice any worsening of your symptoms, or any new symptoms such as vomiting, diarrhea, fever, chills, shortness of breath, chest pain, numbness, weakness, or fainting , please return immediately to the emergency department for reevaluation. Please follow up with your primary care provider as soon as possible for reassessment and reevaluation. As always, it was a pleasure participating in your medical care today. Referrals: Cha Hurt [Primary Care Provider, Medicine] HPI General Date/Time Provider Initiated Documentation: 03/18/25 08:40. HPI Narrative: This is an 84-year-old male with a past medical history of diabetes, hypertension, peripheral artery disease, who lives at home with his who presents today for evaluation of weakness. Per EMS they state that family states that he has become a bit more confused over the last few weeks to months, but has otherwise been stable in that regard, however over the last few days he has become gradually more weak and unsteady. Normally he is able to ambulate with a walker however this morning he was unable to get out of bed whatsoever and this is notably atypical. He denies any recent falls or trauma. No new medications. The EMS noted that the patient had an elevated temperature of 101 on their initial assessment. Patient was brought in for further evaluation. Patient has no complaints of chest pain, shortness of breath, abdominal pain, numbness or tingling. Patient denies any recent traumas. No other complaints at this time. Related Data Home Medications ?Medication ?Instructions ?Recorded ?Confirmed metformin 500 mg tablet,extended 1,000 mg PO HS 01/03/15 03/18/25 release 24 hr ketoconazole 2 % topical cream 1 applic topical DAILY #120 grams 01/26/25 03/18/25 urea 40 % topical cream 1 applic topical DAILY #28.35 grams 01/26/25 03/18/25 empagliflozin 25 mg tablet 12.5 mg PO DAILY 03/18/25 03/18/25 fexofenadine 1 tab PO DAILY 03/18/25 03/18/25 guar gum 1 tab PO DAILY 03/18/25 03/18/25 rosuvastatin 5 mg tablet (Crestor) 5 mg PO DAILY 03/18/25 03/18/25 Previous Rx's ?Medication ?Instructions ?Recorded ketoconazole 2 % topical cream 1 applic topical DAILY #120 grams 01/26/25 urea 40 % topical cream 1 applic topical DAILY #28.35 grams 01/26/25 Allergies Allergy/AdvReac Type Severity Reaction Status Date / Time No Known Allergies Allergy Verified 03/18/25 07:48 General Stated Complaint: GenMedical MAI: 2 Exam Narrative Exam Narrative: 1.Const: Well-nourished, Well-developed, appearing stated age 2.Eyes: PERRL, no conjunctival injection, and symmetrical lids. 3.ENT: Atraumatic external nose and ears. Dry MM. Neck: Symmetric, trachea midline, No thyromegaly. 4.CVS: +S1/S2, Peripheral pulses 2+ and equal in all extremities. Brisk capillary refill in all extremities. 5.RESP: Unlabored respiratory effort. Clear to auscultation bilaterally except for questionable crackle in the right lower lung field. No overt wheezes rales or rhonchi 6.GI: Soft, Nontender/Nondistended, No hepatosplenomegaly. No guarding or rebound. 7.MSK: Normocephalic/Atraumatic, Extremities w/o deformity or ttp No cyanosis or clubbing, Normal movement of all extremities patient is able to move all extremities, but does appear to be globally weak. 8.Skin: No skin breakdown in the buttock region, but the patient does have what appears to be notable skin breakdown on the left anterior lateral abdominal pannus. 9.Neuro: tiler II-XII grossly intact. Sensation grossly intact, no focal neurologic deficits. No dysdiadochokinesia or dysmetria. Normal [id number]-[id number]. No tongue deviation. 10.Psych: (AAO) x2. Patient initially thought it was January but tells me that he knows he was wrong and that it is a different month. (Currently it is February )appropriate mood and affect Course Vital Signs Vital signs: Vital Signs Temperature 37.3 C 03/18/25 07:01 Pulse 118 H 03/18/25 07:01 Respiratory Rate 14 03/18/25 07:01 Blood Pressure 111/64 03/18/25 07:01 Pulse Oximetry 95 03/18/25 07:01 Temperature 37.3 C 03/18/25 07:23 Temperature Source Oral 03/18/25 07:23 Pulse 118 H 03/18/25 07:23 Respiratory Rate 14 03/18/25 07:23 Blood Pressure 111/64 03/18/25 07:23 Blood Pressure Position Sitting 03/18/25 07:23 Pulse Oximetry 95 03/18/25 07:23 Oxygen Delivery Method Room Air 03/18/25 07:23 Oxygen Flow Rate 0 03/18/25 07:23 Pain Level 0 03/18/25 07:23 Lab/Test Results Lab/Test Results: 03/18/25 07:26 Blood Blood Culture - Pending 03/18/25 07:26 Blood Blood Culture - Pending Medical Decision Making This is an 84-year-old male with a past medical history of diabetes, hypertension, peripheral artery disease, who lives at home with his who presents today for evaluation of weakness. Per EMS they state that family states that he has become a bit more confused over the last few weeks to months, but has otherwise been stable in that regard, however over the last few days he has become gradually more weak and unsteady. Normally he is able to ambulate with a walker however this morning he was unable to get out of bed whatsoever and this is notably atypical. He denies any recent falls or trauma. No new medications. The EMS noted that the patient had an elevated temperature of 101 on their initial assessment. Patient was brought in for further evaluation. Patient has no complaints of chest pain, shortness of breath, abdominal pain, numbness or tingling. Patient denies any recent traumas. No other complaints at this time. Exam demonstrates a globally weak male without any focal deficit. He is A and O x 2 and is only 1 month off and his date. He has questionable crackles in his right lower lung field. No abdominal tenderness. He has notable skin breakdown on the external pannus on his left anterior abdomen, but no evidence of fulminant cellulitis. He is notably incontinent of urine and smells of urine on arrival. EMS reports an elevated temperature, however here he is 99. Differential is broad but includes UTI, pneumonia, electrolyte abnormality, dehydration, subdural, stroke, or glycemic etiology. Will evaluate for these etiologies, give a 500 cc bolus, get blood cultures, monitor closely and reassess. [address] scan of the brain was negative for acute process, chest x-ray was negative for any evidence of pneumonia. Laboratory workup has returned, heart rate is notably improved and tachycardia has resolved. White count normal no significant bandemia. VBG is normal/unremarkable. Electrolytes normal, renal function stable. TSH is slightly high at 5.9, free T4 normal. Blood cultures have been ordered and sent. Urinalysis negative for infection. After fluids, patient was feeling much better, mental status is notably improved, we did get him up and he ambulated well with his walker throughout the emergency department which is a notable change compared to when he first came in and was extremely weak. At this time with no evidence of stroke, or other significant abnormality or infectious etiology for that matter I do not see an indication for admission. I had a long conversation with the patient and his daughter. The daughter feels comfortable taking the patient home but I did make clear that if the patient has return or worsening of his symptoms or new symptoms immediate return and reassessment is indicated to determine need for potential admission if indicated. Suspect dehydration was a notable component for his symptomatology today. There could be potential mild viral etiology. However he has no runny nose, cough, or sore throat. Patient will be discharged home. No evidence of septic shock. No evidence of severe sepsis. Patient's lactate completely normalized to 1.3 after the 750 cc fluid bolus. I have extensively reviewed the treatment plan and discharge instructions with the patient and their family. I have addressed all patient concerns at this time. The patient and family was made aware of what symptoms to monitor for that would warrant a return to the emergency department. Discussed the plan with the patient and family, they demonstrate verbal understanding and agreement with our assessment and plan at this time. The documentation in this chart was dictated using [employer] dictation software. Please excuse any dictation errors. FINDINGS: Single AP portable view. Heart size is upper normal. The mediastinum is not widened. Right lung is clear. There is again noted some scarring in the lingular segment of the left lung, unchanged from previous. No pleural effusions IMPRESSION: No acute pulmonary findings on this single AP portable view of the chest.Scarring lingular segment of the left lung is unchanged from 11/08/2024. FINDINGS: There are no skull fractures. There is no fluid in the visualized paranasal sinuses. There is no evidence of intracranial hemorrhage, mass effect, or shift of midline structures. There are no extra-axial fluid collections. The ventricles are not enlarged or shifted and there is no blood within the ventricular system nor within the basal cisterns. There is moderate symmetrical atrophy. Size of the ventricles is commensurate with the size of the overlying cortical sulci. No evidence of obvious acute infarct. IMPRESSION: No acute intracranial findings on this noninfused CT scan of the brain. Symmetrical age-related involutional change. PFSH All Active Problems (Updated 03/18/25 @ 13:20 by Carroll Esqueda DO) Acute confusion (Acute) Dehydration (Acute) Tinea pedis (Acute) Dystrophia unguium (Acute) Onychogryphosis (Acute) Onychomycosis (Acute) PAD (peripheral artery disease) (Acute) Diabetes mellitus with peripheral artery disease (Acute) DVT prophylaxis (Acute) Hypertension (Chronic) Diabetes (Chronic) Medical History Pneumonia Social History Smoking/Tobacco Use Status: Never Smoking risk assessment performed?: Yes Alcohol Intake: never Drug use: Never Substance use type: does not use Housing: other
[2025-03-18 07:40] LABS: Abs Immature Grans 0.07 10^3/uL (0.0-0.06); BE (Venous) -1 mmol/L (-2-3); HCO3 (Venous) 25 mmol/L (23-28); HCT 46.2 % (40.0-50.0); HGB 15.6 g/dL (13.5-17.5); Immature Grans % 0.9 %; MCH 29.3 pg (27.0-33.0); MCHC 33.8 % (32.0-36.0); MCV 87 fL (80-95); MPV 9.1 fL (8.0-11.0); O2 Sat (Venous) 74 %; Platelet Count 188 10^3/uL (130-400); RBC 5.33 10^6/uL (4.36-5.78); RDW 13.2 % (11.8-14.1); RDW-SD 42.1 fL; TCO2 (Venous) 22 mmol/L (24-29); WBC 8.00 10^3/uL (4.4-10.8); pCO2 (Venous) 41 mmHg (41-51); pO2 (Venous) 39 mmHg
[2025-03-18] MEDS: Normal Saline 500 ML IV (07:54)
[2025-03-18 08:03] LABS: INR 1.2 (0.9-1.1); PTT Activated 23.9 sec (20.6-30.2); Prothrombin Time 11.5 sec (9.1-11.1)
[2025-03-18 08:11] LABS: ALT 20 U/L (16-63); AST 19 U/L (15-37); Albumin 3.3 g/dL (3.4-5.0); Alkaline Phosphatase 58 U/L (46-116); Anion Gap 11.2 mmol/L (3-11); BUN 18 mg/dL (7-18); Bilirubin, Total 1.1 mg/dL (0.2-1.0); CO2 25.8 mmol/L (21.0-32.0); Calcium 9.0 mg/dL (8.5-10.1); Chloride 103 mmol/L (98-107); Estimated GFR 54.85 (mL/min/1.73m2); Glucose 184 mg/dL (74-106); Potassium 3.7 mmol/L (3.5-5.1); Sodium 140 mmol/L (136-145); TSH (W/Ref FT4) 5.90 uIU/mL (0.36-3.74); Total Protein 7.1 g/dL (6.4-8.2); Troponin I 17 ng/L (<or=76)
--- NOTE | 2025-03-18 08:24 | DI.RAD_ITS ---
Exam(s) XR CHEST 1V IN DI DEPT EXAM: XR CHEST 1V IN DI DEPT CLINICAL HISTORY: cough, eval for pneumonia. TECHNIQUE: 2D digital imaging was performed. COMPARISON: Chest x-ray 11/08/2024 FINDINGS: Single AP portable view. Heart size is upper normal. The mediastinum is not widened. Right lung is clear. There is again noted some scarring in the lingular segment of the left lung, unchanged from previous. No pleural effusions IMPRESSION: No acute pulmonary findings on this single AP portable view of the chest.Scarring lingular segment of the left lung is unchanged from 11/08/2024. DATA REPOSITORY: RADIATION DOSE DELIVERED:
[2025-03-18 08:27] LABS: Procalcitonin 1.79 ng/mL
[2025-03-18 08:55] LABS: Troponin I 22 ng/L (<or=76)
[2025-03-18 10:41] LABS: Glucose 500 mg/dL (Negative)
[2025-03-18] MEDS: Lidocaine 2% Jelly 11 ML SYR (10:46)
[2025-03-18 10:55] LABS: C & S Indicated? No; RBC Negative HPF (0-2); WBC 0-2 HPF (0-5)
[2025-03-18 11:20] LABS: Troponin I 27 ng/L (<or=76)
[2025-03-18] MEDS: Normal Saline 250 ML IV (11:36)
--- NOTE | 2025-03-20 14:12 | NUR.NOTE ---
Addendum entered by Caro Amador 03/28/25 11:42: 03/28/25 Anaerobic gram positive cocci identified as eggerthella lenta. This new result was given to Dr Grande. Original Note: Blood culture: 1 bottle out of 4 anerobic positive gram + cocci; seen 03/18/25. Result given to Dr. Grande. Nursing Note:
--- NOTE | 2025-03-20 14:39 | W.ED.FU ---
Date of service: 03/20/25 Time of Service: 14:39 Follow Up Plan: This patient had preliminary blood cultures results on my shift from 2 days ago. He had 1 anaerobic bottle showing gram-positive cocci. I attempted to call the patient back. There was only 1 number listed in the patient's chart. Unfortunately this number went to voicemail that was full. The number listed went to the patient's , Leann. Patient has a PCP listed as Jose Roberto Hurt. I attempted to call this patient's PCP. She is with the [facility]. I was connected with the emergency department at the [facility] in [place] where I spoke with Dr. Donahue. Advised her that patient had 1 out of 4 anaerobic bottles growing gram-positive cocci. She will help to arrange outpatient follow-up either by calling the [facility] with [facility] or have the PCP call the patient. Patient was not discharged on any antibiotics.
== END 2025-03-18 14:08 | disposition home or self-care (01) ==
PROVIDERS: Emergency Provider Student in an Organized Health Care Education/Training Program; PCP Physician Assistant
DX: E86.0 Dehydration (principal); R41.82 Altered mental status, unspecified; E11.69 Type 2 diabetes mellitus with other specified complication; I10 Essential (primary) hypertension; R53.1 Weakness
CPT/HCPCS: 36415; 51703; 80053; 82805; 84145; 87040; 87077; 93005; 96360; 96361; 99285; 70450; 71045; 81003; 81015; 83605; 84439; 84443; 84484; 85025; 85610; 85730; 93010; 99284